=== PATIENT | female | born 1940 | race Caucasian/White ===

== ENCOUNTER → 2016-03-06 | Outpatient (CLI) | payer OTHER ==
[~2016-03-06] MED LIST: GLC/500 PO; ONDA4TAB7 SL
--- NOTE | 2016-03-07 06:39 | PAP/PSG TECHNICIAN REPORT ---
[facility] High Pressure Kettle Operator Polysomnogram Report Study name: None Report date: 03/07/2016 Study date: 03/06/2016 Referring Physician: Mirian MILLER M.D. Name: ELIJAH HINES Interpreting Physician: Rafael Miller M.D. Date of : 1940 High Pressure Kettle Operator: Lynne Ortega RPSGT. Sex: Female Age: 75 Study Type: PSG Weight: 201 lbs 16 in Height: 75 years, Height 5' 5" Neck Circum: BMI: 33.44 Medications: METFORMIN 1000 MG, LORAZEPAM 1 MG, RANITIDINE 75 MG, BACTRIM DS 800-160 MG, CELEXA 20 MG, LISINOPRIL 5 MG, ATORVASTATIN 10 MG, DITROPAN 10 MG, D-3 1000 UNIT, ASPIRIN 81 MG, ACETAMINOPHEN 325 MG, LAXATIVE, Patient History 75 yr-old female here for a baseline/split study. She has a history of loud snoring, worsening memory, and daytime sleepiness. Her [place] scale is 6. The test was started on room air. ETCO2 testing is included in this study. Room 3 Parameters Monitored NPSG: E1-M2, E2-M1, Fp1-M2, Fp2-M1, F3-M2, F4-M2, F4-M1, C3-M2, C4-M2, C4-M1, O1-M2, O2-M2, O2-M1, T3-M2, T4-M1, P3-M2, P4-M1, CHIN1, CHIN2, HR, EKG, Legs, PFLOW, SNOR, FLOW, CFLOW, Tidal Volume, THOR, ABDO, SpO2, PLTH, CPRESS, ETCO2 Wave, ETCO2, pH Sleep Architecture Sleep Stages Time at Lights Off 10:21:09 PM STAGES Time (min.) TST (%) Time at Lights On 5:30:39 AM Wake 95.0 -- Total Recording Time (TRT) 429.50 min. N1 75.5 23 Total Sleep Period (TSP) 352.5 min. N2 235.0 70 Total Sleep Time (TST) 334.5min. N3 24.0 7 Awake Time 95.0 min. REM 0.0 0 Wake after Sleep Onset 37.5 min. Sleep Efficiency (SE) 78 % Sleep Onset Latency (KATERINA) 57.5 min. Number of Stage 1 Shifts None Awakenings 18 Stage Changes 123 Number of REM periods N/A REM 0.0 0 REM Latency NONE min. NREM 334.5 100 Body Position Analysis Supine Right Left Side Prone Vertical Total Sleep Time (min.) 247.1 68.4 91.6 159.96 0.0 0.0 Total Sleep Time (%) 52% 20% 27% 48 0% N/A% Total Sleep Time REM (min.) 0.0 0.0 0.0 None 0.0 0.0 Total Sleep Time NREM (min.) 174.5 68.4 91.6 None 0.0 0.0 Intermittent Wake (min.) 72.5 22.5 0.0 None 0.0 0.0 Total Sleep Period (%) 54% None None None None None Arousals Myoclonus (PLM) * Events Count Index Events Count Index Spontaneous 39 7 Events Awake (PLMW) 65 41.1 Respiratory 16 3.0 Events Asleep w/ Arousal (PLMA) 45 8.1 PLM 44 8 Events Asleep w/o Arousal (PLMS) 316 56.7 Snoring 3 1 Total Asleep 361 64.8 Total 102 18 Total 426 60 Respiratory Analysis * CA OA MA CH H RERA Total Count 0 17 2 0 49 1 68 Index 0.0 3.0 0.4 0 8.8 0 12.4 Mean Duration 0.0 15.5 26.4 0.00 16.5 13.1 16.5 Longest Duration 0.0 26.1 33.1 0.00 33.1 13.1 33.1 Respiratory Event Summary Total Supine ~Supine Right Left Prone REM NREM Apneas Count 19 17 2 1 1 N/A N/A 19 Index 3.4 6 1 0.9 0.7 N/A N/A 3 Hypopneas (4% Desat) Count 49 35 14 2 12 N/A N/A 49 Index 8.8 12.0 5 1.8 7.9 N/A N/A 8.8 Apneas & All Hypopneas Count 68 52 16 3 13 N/A N/A 68 Index 12.2 18 6 3 9 N/A N/A 12.2 Respiratory Events (Jail Guard+All Hyp+RERA) Count 68 53 16 3 13 N/A N/A 68 Index 12.4 18 6 2.6 8.5 N/A N/A 12.4 Respiratory Related Arousal Count 16 53 2 0 2 N/A N/A 17 Index 3.0 5 1 0 1 N/A N/A 3 Snoring Analysis Supine Right Left Prone REM NREM Total Snore duration 4.8 min Snores count 182 38 38 N/A N/A 258 258 Snore mean duration 1.1 Sec Snores index 63 33 25 N/A N/A 46.3 46.3 TST with snoring (%) 1.4% SpO2 Analysis Total REM NREM Awake <50% 0.0 min. 0.0 min. 0.0 min. 0.0 min. 51 - 60% 0.0 min. 0.0 min. 0.0 min. 0.0 min. 61 - 70% 0.0 min. 0.0 min. 0.0 min. 0.0 min. 71 - 80% 2.2 min. 0.0 min. 1.7 min. 0.5 min. 81 - 90% 395.1 min. 0.0 min. 312.3 min. 82.8 min. 91 - 100% 26.9 min. 0.0 min. 20.5 min. 6.5 min. Average 88 0 88 89 Minimum SpO2 75 N/A 75 77 Desaturation Event Index 15.9 0.0 18.7 8.2 # Desat. Events below 89% 112 N/A 102 10 Time(%) with Saturation below 89% 45.9 0.0 41.0 4.9 Time(min.) with Saturation below 89% 194.8 0.0 174.1 20.7 Heart Rate Analysis End Tidal CO2 Analysis Min (bpm) Max (bpm) Average (bpm) TSP (mins) % of TSP Awake 58 127 75 Above 55 mmHg 32.8 9.8 NREM 56 86 71 50-55 mmHg 81.0 24.2 REM N/A N/A N/A 45-50 mmHg 76.1 22.7 Overall 56 86 71 40-45 mmHg 37.2 11.1 35-40 mmHg 19.8 5.9 30-35 mmHg 13.9 4.2 Average ETCO2 0.2 Supplemental O2 Values Minimum O2 level: None Value Start Time End Time High Pressure Kettle Operator Comments Ms. Hines slept in the right, left, and supine positions. No cardiac arrhythmias were noted. PLMs were throughout the study noted. No bruxism noted. Snoring was noted and scored as a 2-3 on a scale of 1 through 5. (0=no snoring, 5=snoring loud enough to be heard through a closed door or down the limon way). She did not meet specific Split-Night criteria during the diagnostic portion of this study. She did not wake up to use the restroom during the night. Ms. Hines stated that she slept about the same as usual. The final report will be interpreted and signed by a sleep physician. The completed physician report will then be placed in the patient medical record. Therapy (cm H2O) 0 TIB (min.) 429.5 TST (min.) 334.5 Sleep Onset (min.) 57.5 REM Onset From Sleep (min.) NONE Sleep Efficiency % 78 Wakefulness (%) 22 Wakefulness (min.) 95.0 NREM 1 (%) 23 NREM 1 (min.) 75.5 NREM 2 (%) 70 NREM 2 (min.) 235.0 NREM 3 (%) 7 NREM 3 (min.) 24.0 REM (%) 0 REM (min.) 0.0 # Arousals 102 Arousal Index 18 # Snore 258 Snore Index 46.3 AHI 12.2 AHI Supine 18 AHI Non-Supine 6 NREM AHI 12.2 REM AHI N/A RDI 12.4 # Obstructive Apnea 17 # Central Apnea 0 # Mixed Apnea 2 # Hypopneas 49 RERAs 1 Total Respiratory Events 70 Time Below SpO2 89% (min.) 174.1 Mean NREM SpO2 (%) 88 Mean REM SpO2 (%) N/A Mean Sleep SpO2 (%) 88 Min NREM SpO2 (%) 75 Min REM SpO2 (%) N/A Position Supine (min.) 247.1 Position Non-supine (min.) 160.0 LM Index Sleep 64.8 LM Index NREM 64.8 LM Index REM N/A Mean Heart Rate (bpm) 71 Min Heart Rate (bpm) 56
--- NOTE | 2016-03-13 11:13 | POLYSOMNOGRAPH REPORT ---
REFERRING PERSON: Dr. Zuleyma Miller. AUTO SELF SERVICE STATION ATTENDANT: Lynne Ortega. Ms. Hines is a 75-year-old female sent for baseline split-night sleep study. She has a history of loud snoring, poor memory, and daytime sleepiness. Her [place] Sleepiness Scale score on the evening of this study is 6. BMI is 33.44. Following the technical and digital specifications of the [employer] [employer] (AASM) a standard diagnostic polysomnogram was performed monitoring EEG, EOG, EMG (chin and leg deviations), oxygen saturation, body position, digital video, respiratory effort and airflow. The sleep Stage and event scoring was based on the AASM Manual for the Scoring of Sleep and Associated Events 2007 edition. Apneas are defined as a drop in the peak thermal sensor excursion by >90% of baseline for at least 10 seconds. Hypopneas were scored using the 4% oxygen desaturation rule (4A-Medicare) and a decrease in the nasal pressure excursions by >30% of baseline for at least 10 seconds. Respiratory effort-related arousal (RERA's) is defined as a sequence of breaths lasting at least 10 seconds characterized by increasing respiratory effort or flattening of the nasal pressure waveform leading to an arousal from sleep when the sequence of breaths does not meet criteria for an apnea or hypopnea. Apnea Hypopnea index (AHI) is defined as the number of apneas and hypopneas occurring in an hour of sleep. Respiratory disturbance index (RDI) is defined as the number of apneas, hypopneas, and RERA's occurring in an hour of sleep. Ms. Hines's total sleep period time was 352.5 minutes. Total sleep time was 333.5 minutes. Sleep efficiency was 78%. Latency to sleep onset was 57.5 minutes with wake after sleep onset of 37.5 minutes. Total non-REM sleep time was 334.5 minutes. She spent 23% of that time in N1 sleep, 70% in N2 sleep, and 7% in N3 sleep. REM latency, there was no REM sleep on this test. There were 102 cortical arousals from sleep. 44 of these arousals were due to periodic limb movements, 3 were due to snoring, 16 were due to respiratory events and the remaining 39 were spontaneous. There were 361 periodic limb movements. Limb movement index was 64.8, limb movement with arousal index was 8.1. There were no central, 17 obstructive, and 2 mixed apneas on this test. Additionally, there were 49 hypopnea and 1 RERA. Apnea-hypopnea index was elevated at 12.2. There were 258 snoring events recorded. Total sleep time with snoring was 1.4%. Mean saturation was low at 88% with desaturations to 75%. Saturations were less than 89% for 194.8 minutes of sleep time. There was no cardiac ectopy. Heart rates during sleep ranged from a low of 56 beats per minute to a high of 86 beats per minute. End-tidal CO2 was recorded on this test. End-tidal CO2s were above 55 mmHg for 32.8 minutes or 9.8% of total sleep period time. End-tidal CO2s were between 50 and 55 mmHg for 24.2%, between 45 and 50 mmHg for 22.7% of total sleep period time, between 40 and 45 mmHg for 11.1% of total sleep period time, between 35 and 40 mmHg for 5.9%, and between 30 and 35 mmHg for 4.2% of total sleep period time. IMPRESSION AND PLAN: A 75-year-old female with evidence of mild sleep apnea and significant nocturnal hypoxemia on this study. 1. This patient would likely benefit from positive airway pressure therapy. She should return to sleep lab for full-night titration, and then based on those results, be started on equipment at home. A download from her machine can be reviewed in 1 month both to check compliance as well as AHI, and further pressure adjustments should occur at that time. 2. Should this patient be unwilling or unable to tolerate CPAP therapy, she should be started on nocturnal oxygen and then referred to either ear, nose and throat or oral surgery/dental medicine (if appropriate) to discuss alternative treatments for sleep disordered breathing.
== END | disposition home or self-care (01) ==
LOC: C.NEUR 21:00
PROVIDERS: ATTEND Family Medicine
DX: F51.11 Primary hypersomnia (principal); R06.83 Snoring; E66.9 Obesity, unspecified; R41.3 Other amnesia; R09.02 Hypoxemia

== ENCOUNTER → 2016-05-04 | Outpatient (CLI) | payer OTHER ==
[~2016-05-04] MED LIST changes: +ATOR10TA82 PO; +ATV/1 PO; +CLX20 PO; +LISI-729 PO; +METF-384 PO
--- NOTE | 2016-05-05 06:14 | PAP/PSG TECHNICIAN REPORT ---
[facility] Cardiopulmonary Technologist Polysomnogram Report Study name: None Report date: 05/05/2016 Study date: 05/04/2016 Referring Physician: Mirian MILLER M.D. Name: ELIJAH HINES Interpreting Physician: Rafael Miller M.D. Date of : 1940 Cardiopulmonary Technologist: Lynne Ortega RPS. Sex: Female Age: 76 Study Type: PSG PAP Weight: 201 lbs 16 in Height: 76 years, Height 5' 5" Neck Circum: BMI: 33.44 Medications: METFORMIN 1000 MG, LORAZEPAM 1 MG, RANITIDINE 75 MG, BACTRIM DS 800-160 MG, CELEXA 20 MG, LISINOPRIL 5 MG, ATORVASTATIN 10 MG, DITROPAN 10 MG, D-3 1000 UNIT, ASPIRIN 81 MG, ACETAMINOPHEN 325 MG, LAXATIVE, Patient History 76 yr-old female here for a new CPAP treatment study. She was found to be positive for AVINASH with an AHI of 12.2. Her diagnostic study was on 03/06/16. She is wearing a Quattro Air full face mask size medium from [employer]. The test was started on room air and 4 CMH2O. ETCO2 testing was not utilized during this study. Room 1 Parameters Monitored NPSG: E1-M2, E2-M1, Fp1-M2, Fp2-M1, F3-M2, F4-M2, F4-M1, C3-M2, C4-M2, C4-M1, O1-M2, O2-M2, O2-M1, T3-M2, T4-M1, P3-M2, P4-M1, CHIN1, CHIN2, HR, EKG, Legs, PFLOW, SNOR, FLOW, CFLOW, Tidal Volume, THOR, ABDO, SpO2, PLTH, CPRESS, ETCO2 Wave, ETCO2, pH Sleep Architecture Sleep Stages Time at Lights Off 9:31:41 PM STAGES Time (min.) TST (%) Time at Lights On 5:14:11 AM Wake 72.5 -- Total Recording Time (TRT) 462.50 min. N1 56.0 14 Total Sleep Period (TSP) 412.0 min. N2 228.5 59 Total Sleep Time (TST) 390.0min. N3 27.5 7 Awake Time 72.5 min. REM 78.0 20 Wake after Sleep Onset 30.0 min. Sleep Efficiency (SE) 84 % Sleep Onset Latency (KATERINA) 42.5 min. Number of Stage 1 Shifts None Awakenings 12 Stage Changes 81 Number of REM periods 6 REM 78.0 20 REM Latency 156.5 min. NREM 312.0 80 Body Position Analysis Supine Right Left Side Prone Vertical Total Sleep Time (min.) 268.7 63.9 116.0 179.87 0.0 0.0 Total Sleep Time (%) 54% 16% 30% 46 0% N/A% Total Sleep Time REM (min.) 9.0 28.5 40.5 None 0.0 0.0 Total Sleep Time NREM (min.) 201.1 35.4 75.5 None 0.0 0.0 Intermittent Wake (min.) 58.6 13.3 0.6 None 0.0 0.0 Total Sleep Period (%) 55% None None None None None Arousals Myoclonus (PLM) * Events Count Index Events Count Index Spontaneous 27 4 Events Awake (PLMW) 63 52.1 Respiratory 19 2.9 Events Asleep w/ Arousal (PLMA) 20 3.1 PLM 20 3 Events Asleep w/o Arousal (PLMS) 381 58.6 Snoring 4 1 Total Asleep 401 61.7 Total 70 11 Total 464 60 Respiratory Analysis * CA OA MA CH H RERA Total Count 1 7 2 0 102 3 112 Index 0.2 1.1 0.3 0 15.7 0 17.7 Mean Duration 10.0 17.2 24.8 0.00 20.1 16.4 19.8 Longest Duration 10.0 24.6 25.5 0.00 25.5 17.7 59.4 Respiratory Event Summary Total Supine ~Supine Right Left Prone REM NREM Apneas Count 10 9 1 1 0 N/A 3 7 Index 1.5 3 0 0.9 0.0 N/A 2 1 Hypopneas (4% Desat) Count 102 91 11 8 3 N/A 16 86 Index 15.7 26.0 4 7.5 1.6 N/A 12.3 16.5 Apneas & All Hypopneas Count 112 100 12 9 3 N/A 19 93 Index 17.2 29 4 8 2 N/A 14.6 17.9 Respiratory Events (Order Worker+All Hyp+RERA) Count 112 103 12 9 3 N/A 19 93 Index 17.7 29 4 8.4 1.6 N/A 14.6 18.5 Respiratory Related Arousal Count 19 103 0 0 0 N/A 1 18 Index 2.9 5 0 0 0 N/A 1 3 Snoring Analysis Supine Right Left Prone REM NREM Total Snore duration 20.6 min Snores count 1,109 3 5 N/A 11 1,106 1,117 Snore mean duration 1.1 Sec Snores index 317 3 3 N/A 8.5 212.7 171.8 TST with snoring (%) 5.3% Desaturation Event Summary: Minimum %SpO2 Event Count Mean/Min/Max Duration(sec.) Desaturation Index % Time In Bed > 90 117 31.1 / 7.3 / 60.0 26.0 59.0 86 - 90 36 26.7 / 6.5 / 50.0 12.4 38.0 81 - 85 0 N/A 0.0 2.5 76 - 80 0 N/A 0.0 0.4 71 - 75 0 N/A 0.0 0.0 66 - 70 0 N/A 0.0 0.0 61 - 65 0 N/A 0.0 0.0 56 - 60 0 N/A 0.0 0.0 51 - 55 0 N/A 0.0 0.0 < 50 0 N/A 0.0 0.0 Total REM NREM Awake <50% 0.0 min. 0.0 min. 0.0 min. 0.0 min. 51 - 60% 0.0 min. 0.0 min. 0.0 min. 0.0 min. 61 - 70% 0.0 min. 0.0 min. 0.0 min. 0.0 min. 71 - 80% 2.1 min. 0.6 min. 1.3 min. 0.2 min. 81 - 90% 185.1 min. 23.4 min. 137.5 min. 24.2 min. 91 - 100% 270.0 min. 54.1 min. 173.1 min. 42.8 min. Average 91 91 91 91 Minimum SpO2 74 78 74 79 Desaturation Event Index 17.4 16.2 20.6 5.0 # Desat. Events below 89% 106 15 91 0 Time(%) with Saturation below 89% 11.4 2.6 8.4 0.4 Time(min.) with Saturation below 89% 52.1 11.9 38.3 1.8 Time (mins) REM (mins) NREM (mins) % of TST SpO2 Below 90% 124 21 N103 24.4 SpO2 Below 88% 53 0 0 7 Heart Rate Analysis Min (bpm) Max (bpm) Average (bpm) Awake 53 89 62 NREM 52 95 64 REM 55 82 66 Overall 52 95 65 Supplemental O2 Values Minimum O2 level: None Value Start Time End Time Cardiopulmonary Technologist Comments Ms. Hines slept in the left, right, and supine positions. Cardiac arrhythmias were noted (please refer to the printouts). PLMs were noted. No bruxism noted. CPAP was initiated at +4 CMH2O and up-titrated to a level of +13 CMH2O, Cflex 3. Due to continued respiratory events and approaching a high pressure, she was then switched to BiPAP at +15/11 CMH2O. Apneas and hypopneas continued to occur while she was supine. Further increases in pressure were not made due to her waking up and using the restroom at the end of the night. A Quattro Air full face mask size medium from [employer] was used during titration She did not wake up to use the restroom during the night. Ms. Hines stated that she slept poorly. The final report will be interpreted and signed by a sleep physician. The completed physician report will then be placed in the patient medical record. Therapy Event: Therapy (cm H20) 4 6 7 8 10 11 12 13 15/11 Total Time at Pressure (min.) 101.4 51.3 61.6 28.7 15.9 14.5 102.7 20.7 65.7 TST at Pressure (min.) 43.4 51.3 61.1 27.7 15.9 14.5 102.2 18.2 55.7 # Periods 1 1 1 1 1 1 1 1 1 Sleep Onset (min.) 42.5 0.0 0.0 0.0 0.0 0.0 0.0 0.0 0.0 REM Onset (min.) N/A N/A 46.3 0.0 N/A N/A 102.1 0.0 0.0 Sleep Efficiency % 42 100 99 96 100 100 99 87 84 Wakefulness (%) 57.2 0.0 0.8 3.5 0.0 0.0 0.5 12.1 15.2 Wakefulness (min.) 58.0 0.0 0.5 1.0 0.0 0.0 0.5 2.5 10.0 NREM 1 (%) 10.4 0.0 17.0 31.4 6.3 0.0 7.3 36.2 15.2 NREM 1 (min.) 10.5 0.0 10.5 9.0 1.0 0.0 7.5 7.5 10.0 NREM 2 (%) 32.5 46.4 63.0 7.0 93.7 100.0 91.6 19.3 5.3 NREM 2 (min.) 32.9 23.8 38.8 2.0 14.9 14.5 94.1 4.0 3.5 NREM 3 (%) 0.0 53.6 0.0 0.0 0.0 0.0 0.0 0.0 0.0 NREM 3 (min.) 0.0 27.5 0.0 0.0 0.0 0.0 0.0 0.0 0.0 REM (%) 0.0 0.0 19.2 58.1 0.0 0.0 0.6 32.4 64.2 REM (min.) 0.0 0.0 11.8 16.7 0.0 0.0 0.6 6.7 42.2 # Arousals 17 1 13 8 2 1 12 6 10 Arousal Index 23.5 1.2 12.8 17.3 7.6 4.1 7.0 19.8 10.8 # Snore 78 302 418 20 64 72 130 16 17 Snore Index 107.8 353.4 410.2 43.4 241.9 297.9 76.3 52.7 18.3 AHI 15.2 11.7 10.8 30.3 75.6 45.5 5.3 49.4 11.8 AHI Supine 22.0 11.7 11.6 65.9 75.6 45.5 17.3 49.4 44.7 AHI Non-Supine 3.7 N/A 10.0 10.2 N/A N/A 0.0 N/A 4.0 NREM AHI 15.2 11.7 7.3 59.9 75.6 45.5 5.3 47.0 26.7 REM AHI N/A N/A 25.4 10.8 N/A N/A 0.0 53.6 7.1 RDI 18.0 11.7 11.8 30.3 75.6 45.5 5.3 49.4 11.8 # Obstructive 0 0 0 2 0 0 0 2 3 # Central Ap 0 0 1 0 0 0 0 0 0 # Mixed 0 0 0 0 0 0 0 0 2 # Hypopneas 11 10 10 12 20 11 9 13 6 RERAS 2 0 1 0 0 0 0 0 0 Total Respiratory Events 13 10 12 14 20 11 9 15 11 Time Below SpO2 89.00% (min.) 3.8 7.2 11.7 4.9 4.0 3.2 7.4 5.6 2.4 Mean NREM SpO2 (%) 91 90 90 90 91 91 91 90 91 Mean REM SpO2 (%) N/A N/A 89 90 N/A N/A 85 89 93 Mean Sleep SpO2 (%) 91 90 90 90 91 91 91 89 92 Min NREM SpO2 (%) 81 79 86 74 81 81 78 80 77 Min REM SpO2 (%) N/A N/A 82 88 N/A N/A 82 78 86 Position Supine (min.) 27.3 51.3 31.0 10.0 15.9 14.5 31.2 18.2 10.7 Position Non-supine (min.) 16.1 0.0 30.1 17.7 0.0 0.0 71.0 0.0 45.0 LM Index Sleep 107.8 100.6 96.2 58.5 68.0 53.8 28.8 13.2 30.2 LM Index NREM 107.8 100.6 101.0 38.1 68.0 53.8 28.9 0.0 4.4 LM Index REM N/A N/A 76.1 72.0 N/A N/A 0.0 35.8 38.4 Mean Heart Rate (bpm) 63 63 68 69 66 65 65 65 61 Min Heart Rate (bpm) 52 52 53 53 54 54 55 54 52
--- NOTE | 2016-05-11 07:42 | POLYSOMNOGRAPH REPORT ---
TEST DATE: 05/04/2016. REFERRING PERSON: Dr. Rafael Miller. SEWING MACHINE ATTACHMENT TESTER: Lynne Ortega. Ms. Hines is a 76-year-old female sent for CPAP titration study. She was recently found to have an AHI of 12.2. He is using a medium Quattro Air full facemask for her titration. Her [place] Sleepiness Scale Score on the evening of this study is not recorded. BMI is 33.44. Following the technical and digital specifications of the [place] [employer] (AASM) a standard diagnostic polysomnogram was performed monitoring EEG, EOG, EMG (chin and leg deviations), oxygen saturation, body position, digital video, respiratory effort and airflow. The sleep Stage and event scoring was based on the AASM Manual for the Scoring of Sleep and Associated Events 2007 edition. Apneas are defined as a drop in the peak thermal sensor excursion by >90% of baseline for at least 10 seconds. Hypopneas were scored using the 4% oxygen desaturation rule (4A-Medicare) and a decrease in the nasal pressure excursions by >30% of baseline for at least 10 seconds. Respiratory effort-related arousal (RERA's) is defined as a sequence of breaths lasting at least 10 seconds characterized by increasing respiratory effort or flattening of the nasal pressure waveform leading to an arousal from sleep when the sequence of breaths does not meet criteria for an apnea or hypopnea. Apnea Hypopnea index (AHI) is defined as the number of apneas and hypopneas occurring in an hour of sleep. Respiratory disturbance index (RDI) is defined as the number of apneas, hypopneas, and RERA's occurring in an hour of sleep. Ms. Hines's total sleep period time was 412 minutes. Total sleep time was 390 minutes. Sleep efficiency was 84%. Latency to sleep onset was 42.5 minutes with wake after sleep onset of 30 minutes. Total non-REM sleep time was 312 minutes. She spent 14% of that time in N1 sleep, 59% in N2 sleep and 7% in N3 sleep. REM latency was 156.5 minutes. Total REM sleep time 78 minutes or 20% of total sleep time. There were 70 cortical arousals from sleep. Four of these arousals were due to snoring, 20 due to periodic limb movements of sleep, 19 were due to respiratory events, and 27 were spontaneous. There were 401 periodic limb movements. Limb movement index was 61.7, however, limb movement with arousal index was 3.1. On this sleep study, there was 1 central, 7 obstructive and 2 mixed apneas. Additionally, there were 102 hypopnea. Apnea-hypopnea index was 17.2. 1,117 snoring events were recorded. Total sleep time with snoring was 5.3%. Mean saturation during sleep was 91% with desaturations to 74%. Saturations were less than 89 for 52.1 minutes of recorded time. Premature atrial and ventricular complexes were noted on EKG monitoring. Heart rates ranged from a low of 52 beats per minute to a high of 95 beats per minute during sleep. Ms. Hines was titrated from a CPAP pressure of 4 to a CPAP pressure of 13 over the course of the night. Increasing pressures were needed to prevent apneas, hypopneas and arousals. At a pressure of 13, due to continued respiratory events, and difficulty tolerating therapy, she was switched to bilevel therapy. She was observed on 15/11 for 55.7 minutes of sleep time, 42.2 of those minutes was spent in REM sleep. This was non-supine REM sleep. AHI and RDI on this pressure were both 11.8. Saturations were less than 89% for 2.4 minutes of recorded time. IMPRESSION AND PLAN: Suboptimal CPAP to BIPAP titration study in this patient with known mild sleep apnea. Most of her events were hypopneas and required increasing pressures to eliminate. On a pressure of 15/11. She continued to have some hypopneic events with an AHI of 11 after a long period of non-supine REM sleep. I would recommend that this patient could be started on an auto titrating BIPAP with an EPAP minimum of 11 and a max pressure of 15 with a maximum pressure support of 4. A download from her machine can then be reviewed in 1 month both to check compliance as well as AHI and further pressure adjustments can occur at that time. This appears to eliminate her hypoxemia.
== END | disposition home or self-care (01) ==
LOC: C.NEUR 20:00
PROVIDERS: ATTEND Family Medicine
DX: G47.33 Obstructive sleep apnea (adult) (pediatric) (principal); G47.34 Idiopathic sleep related nonobstructive alveolar hypoventilation; I10 Essential (primary) hypertension; G47.10 Hypersomnia, unspecified

== ENCOUNTER 2016-12-20 18:11 | Emergency (ER) | payer OTHER ==
[~2016-12-20] VITALS: Ht 162.6 cm; Wt 93.0 kg
[~2016-12-20 18:11] MED LIST changes: -ATOR10TA82 PO; -ATV/1 PO; -CLX20 PO; -LISI-729 PO; -METF-384 PO
[2016-12-20 18:15] VITALS: TEMP 36.4; Ht 162.6 cm; Wt 93.0 kg
[2016-12-20 18:32] VITALS: O2SAT 98
[2016-12-20] MEDS ORDERED: METF-384 PO (18:41)
[2016-12-20] MEDS ORDERED: ATV/1 PO (18:49)
[2016-12-20] MEDS ORDERED: LISI-729 PO (18:49)
[2016-12-20] MEDS ORDERED: ATOR10TA82 PO (18:49)
[2016-12-20] MEDS ORDERED: CLX20 PO (18:52)
[2016-12-20] MEDS ORDERED: ONDANSETRON INJ 2 MG/ML 2 ML VIAL IV STA (18:54)
[2016-12-20] MEDS ORDERED: FENTANYL CITRATE INJ 50 MCG/1 ML 2 ML VIAL IV ONE (19:00)
[2016-12-20 19:13] LABS: ISTAT CREATININE 0.8 mg/dl (0.6-1.3); ISTAT HEMOGLOBIN 11.2 g/dl (12.0-16.0); ISTAT IONIZED CALCIUM 1.21 mmol/l (1.12-1.32)
[2016-12-20 19:15] LABS: BASO % 0.3 %; BASO ABS # 0.04 K/uL (0-0.2); COMPLETE YES; EOS % 1.7 %; HEMATOCRIT 33.6 % (37-47); IG% 0.3 %; LYMPH ABS # 1.73 K/uL (1.2-3.4); MEAN CELL VOLUME 90.3 fL (80-100); MEAN CORPUSCULAR HEMOGLOBIN 29.6 pg (25-34); MEAN CORPUSCULAR HGB CONC 32.7 g/dl (32-36); MEAN PLATELET VOLUME 11.7 fL (7.4-10.4); MONO % 5.3 %; NEUT % 80.4 %; PLATELET COUNT 188 K/uL (130-400); RED BLOOD COUNT 3.72 M/uL (4.2-5.4); WHITE BLOOD COUNT 14.38 K/uL (4.8-10.8)
--- NOTE | 2016-12-20 19:18 | EMERGENCY ROOM VISIT NOTE ---
History First contact with patient: 18:33 Chief Complaint: FALL Stated Complaint: FELL OFF HORSE, RT EYE NOT RESPONDING, RIB PAIN History of Present Illness The patient is a 76 year old female who presents to the Emergency Room with complaints of headache and right rib pain. The patient states that she fell off of a horse this evening. She states that the horse turned and she fell to the opposite side. She reports a mild headache. She does not remember the fall. The fall was witnessed and she did not loose consciousness. She reports pain in the right ribs and difficulty taking a full breath. A family member who is a nurse examined her and told her that the right eye is not reactive to light. The patient denies any abdominal pain or vomiting. She rates her overall discomfort a 5/10. She also reports pain in the right buttock. She denies any numbness or weakness. She takes a baby aspirin daily but no other anticoagulants. Review of Systems A complete 10 point review of systems was reviewed with the patient with pertinent positives and negatives as per history of present illness. All else were negative. Past Medical/Surgical History Medical Problems: (1) CATARACT NOS (2) DIAB MILTON WO COMPL, TYPE II OR UNSPEC TYPE, NOT UNCNTRLD (3) HYPERLIPIDEMIA NEC/NOS (4) HYPERTENSION NOS (5) PNEUMONIA, ORGANISM NOS Social History Smoking Status: Former Smoker Alcohol Use: none Marital Status: Occupation Status: retired Current/Historical Medications Scheduled Atorvastatin (Lipitor), 10 MG PO DAILY Citalopram (Citalopram Hydrobromide), 20 MG PO QPM Lisinopril (Zestril), 5 MG PO DAILY Lorazepam (Ativan), 1 MG PO HS Metformin Hcl (Glucophage), 1,000 MG PO BID Physical Exam Vital Signs Date Time Temp Pulse Resp B/P (MAP) Pulse Ox O2 Delivery O2 Flow Rate FiO2 12/20/16 21:05 88 20 122/63 97 12/20/16 20:30 78 20 122/63 97 Room Air 12/20/16 19:30 78 20 128/68 98 Room Air 12/20/16 18:34 97 20 114/59 95 Room Air 12/20/16 18:32 98 Room Air 12/20/16 18:15 36.4 104 16 131/79 96 Room Air Physical Exam VITALS: Vitals are noted on the nurse's note and reviewed by myself. Vital signs stable. GENERAL: This is a 76-year-old female, in no acute distress but appears to be in pain, nondiaphoretic, well-developed well-nourished. SKIN: The skin was without erythema, edema, or bruising. HEAD: Normocephalic atraumatic. EARS: External auditory canals clear, tympanic membranes pearly carrera without erythema or effusion bilaterally. No hemotympanum. EYES: Pupils equal round and reactive to light and accommodation. No subconjunctival hemorrhages. Extraocular movements intact. NOSE: No deformity, no bleeding. MOUTH: Mucous membranes moist. NECK: Supple without nuchal rigidity. Cervical spine is nontender. HEART: Regular rate and rhythm without murmurs gallops or rubs. LUNGS: Clear to auscultation bilaterally without wheezes, rales or rhonchi. No retractions or accessory muscle use. ABDOMEN: Soft, nontender to palpation. MUSCULOSKELETAL: There is tenderness to palpation to the right lower lateral ribs. There is tenderness to palpation of the right buttock. Full range of motion of all extremities. NEURO: Patient was alert and oriented to person place and time. Normal sensation to light and sharp touch. No focal neurological deficits. Medical Decision & Procedures ER Provider Diagnostic Interpretation: HEAD WITHOUT CONTRAST (CT) IMPRESSION: 1. No acute intracranial abnormality. CERVICAL SPINE W/O IMPRESSION: No acute osseous injury of the cervical spine. Multilevel degenerative changes. CHEST CT WITH CONTRAST IMPRESSION: 1. No acute intrathoracic abnormality identified. No fracture or pneumothorax. 2. 4 mm noncalcified pulmonary nodule of the right upper lobe is noted along with evidence of prior granulomatous disease. 3. Parenchymal calcifications are seen within the bilateral breasts. There is a round masslike lesion of the mid right breast measuring up to 1.2 cm as above. Correlate with mammography. ABD/PELVIS IV CONTRAST ONLY IMPRESSION: 1. Soft tissue contusion in the superficial subcutaneous tissue of the right flank with focal hematoma immediately superficial to the right gluteus muscle complex. 2. No evidence of intra-abdominal injury. 3. Indeterminate left adrenal nodule. Laboratory Results 12/20/16 18:55 Red Blood Count 3.72, Mean Corpuscular Volume 90.3, Mean Corpuscular Hemoglobin 29.6, Mean Corpuscular Hemoglobin Concent 32.7, Mean Platelet Volume 11.7, Neutrophils (%) (Auto) 80.4, Lymphocytes (%) (Auto) 12.0, Monocytes (%) (Auto) 5.3, Eosinophils (%) (Auto) 1.7, Basophils (%) (Auto) 0.3, Neutrophils # (Auto) 11.56, Lymphocytes # (Auto) 1.73, Monocytes # (Auto) 0.76, Eosinophils # (Auto) 0.24, Basophils # (Auto) 0.04 12/20/16 18:55 Test 12/20/16 18:55 12/20/16 19:00 White Blood Count 14.38 K/uL (4.8-10.8) Red Blood Count 3.72 M/uL (4.2-5.4) Hemoglobin 11.0 g/dL (12.0-16.0) Hematocrit 33.6 % (37-47) Mean Corpuscular Volume 90.3 fL (80-100) Mean Corpuscular Hemoglobin 29.6 pg (25-34) Mean Corpuscular Hemoglobin Concent 32.7 g/dl (32-36) Platelet Count 188 K/uL (130-400) Mean Platelet Volume 11.7 fL (7.4-10.4) Neutrophils (%) (Auto) 80.4 % Lymphocytes (%) (Auto) 12.0 % Monocytes (%) (Auto) 5.3 % Eosinophils (%) (Auto) 1.7 % Basophils (%) (Auto) 0.3 % Neutrophils # (Auto) 11.56 K/uL (1.4-6.5) Lymphocytes # (Auto) 1.73 K/uL (1.2-3.4) Monocytes # (Auto) 0.76 K/uL (0.11-0.59) Eosinophils # (Auto) 0.24 K/uL (0-0.5) Basophils # (Auto) 0.04 K/uL (0-0.2) RDW Standard Deviation 47.3 fL (36.4-46.3) RDW Coefficient of Variation 14.3 % (11.5-14.5) Immature Granulocyte % (Auto) 0.3 % Immature Granulocyte # (Auto) 0.05 K/uL (0.00-0.02) Prothrombin Time 10.8 SECONDS (9.0-12.0) Prothromb Time International Ratio 1.0 (0.9-1.1) Activated Partial Thromboplast Time 23.4 SECONDS (21.0-31.0) Partial Thromboplastin Ratio 0.9 Est Creatinine Clear Calc Drug Dose 54.0 ml/min Estimated GFR () 64.9 Estimated GFR (Non- 56.0 BUN/Creatinine Ratio 18.6 (10-20) Calcium Level 8.8 mg/dl (8.5-10.1) Troponin I < 0.015 ng/ml (0-0.045) Bedside Hemoglobin 11.2 g/dl (12.0-16.0) Bedside Hematocrit 33 % (37-47) Bedside Sodium 138 mEq/L (135-144) Bedside Potassium 3.4 mEq/L (3.3-5.0) Bedside Chloride 98 mEq/L (101-112) Bedside Total CO2 24 mEq/l (24-31) Anion Gap 20.0 mmol/L (16-25) Bedside Blood Urea Nitrogen 17 mg/dl (7-18) Bedside Creatinine 0.8 mg/dl (0.6-1.3) Bedside Glucose (other) 250 mg/dl (70-99) Bedside Ionized Calcium (Mana) 1.21 mmol/l (1.12-1.32) Medications Administered Medications (Trade) Dose Ordered Sig/Kellie Route Start Time Stop Time Status Last Admin Dose Admin Fentanyl Citrate (Fentanyl Inj) 50 mcg NOW ONCE IV 12/20/16 19:00 12/20/16 19:01 DC 12/20/16 19:05 50 MCG Ondansetron HCl (Zofran Inj) 4 mg NOW STAT IV 12/20/16 18:54 12/20/16 18:55 DC 12/20/16 19:04 4 MG Medical Decision Differential diagnosis includes intracranial hemorrhage, concussion, fracture, contusion, intra-abdominal injury, pneumothorax, hemothorax, rib fracture, among others. The patient was evaluated as above. She was given 50 g fentanyl for pain as well as 4 mg Zofran for nausea. Multiple imaging studies were performed and read by radiology as above. Head CT was unremarkable. There was no injury of the cervical spine. Chest CT and abdominal CT showed no acute intrathoracic or intra-abdominal pathology. Patient does have some contusions of the right flank as well as a hematoma of the right buttock. Incidental finding of a breast masses noted. Patient was informed of this and instructed to follow-up with her PCP. She has pain medication at home which she will take as needed. The patient was given an incentive spirometer as well as a walker. She was instructed to return here for any worsening or new/concerning symptoms. She verbalized understanding of my assessment and treatment plan and was discharged home in good condition. The patient was independently evaluated by Dr. Gallagher, ED attending physician, who agreed with my assessment and treatment plan. Medication Reconcilliation Current Medication List: was personally reviewed by me Blood Pressure Screening Patient's blood pressure: Normal blood pressure Impression Primary Impression: Fall from horse Additional Impression: Contusion of multiple sites Departure Information Dispostion Home / Self-Care Condition GOOD Referrals Mono Hou D.OVinod (PCP) Patient Instructions My [facility] Additional Instructions For pain control, you can use the following [id number] medicines (if >12 yo): - Regular strength (325mg/tab) Tylenol (acetaminophen) 2 tabs every 4-6 hours as needed. Do not exceed 12 tablets in a 24 hour period. Avoid taking more than 4 grams (4000 mg) of Tylenol per day. This includes any other sources of acetaminophen you may take on a regular basis. - Regular strength (200 mg/tab) Advil (ibuprofen) 1-2 tabs every 4-6 hours as needed. Do not exceed a dose of 3200 mg per day. Take your own pain medication at home as needed. Apply ice to areas of pain as needed for pain and swelling. Follow-up with your primary care provider for a recheck. Return to the emergency department with any worsening or new/concerning symptoms. Problem Qualifiers Primary Impression: Fall from horse Encounter type: initial encounter Qualified Codes: V80.010A - Animal-rider injured by fall from or being thrown from horse in noncollision accident, initial encounter
[2016-12-20 19:27] LABS: PARTIAL THROMBOPLASTIN RATIO 0.9; PROTHROMBIN TIME (PATIENT) 10.8 SECONDS (9.0-12.0)
--- NOTE | 2016-12-20 19:33 | DIAGNOSTIC IMAGING REPORT ---
HEAD WITHOUT CONTRAST (CT) CLINICAL HISTORY: 76 years-old Female presenting with fell off horse, head and right rib pain. TECHNIQUE: Multidetector CT imaging of the head was performed without the use of intravenous contrast. IV contrast: None. A dose lowering technique was used consistent with the principles of ALARA (as low as reasonably achievable). COMPARISON: 03/29/2012. CT DOSE (mGy.cm): The estimated cumulative dose is 3171.91 inclusive of multiple additional CTs. FINDINGS: Security Operations Analyst topogram: Unremarkable. Ventricles and sulci normal in size. Brain parenchyma normal in appearance with preserved carrera-white differentiation. No mass effect or midline shift. No hemorrhage or acute territorial infarct. No extra-axial fluid collection. Paranasal sinuses and mastoid air cells clear. Calvarium intact. IMPRESSION: 1. No acute intracranial abnormality. Electronically signed by: Valentino Saleh M.D. 12/20/2016 7:32 PM Dictated Date/Time: 12/20/2016 7:30 PM
[2016-12-20 19:34] LABS: BLOOD UREA NITROGEN 18 mg/dl (7-18); BUN/CREATININE RATIO 18.6 (10-20); CALCIUM 8.8 mg/dl (8.5-10.1); CARBON DIOXIDE 24 mmol/L (21-32); CHLORIDE 102 mmol/L (98-107); CREATININE 0.98 mg/dl (0.60-1.20); GLUCOSE 247 mg/dl (70-99); POTASSIUM 3.3 mmol/L (3.5-5.1); SODIUM 138 mmol/L (136-145)
--- NOTE | 2016-12-20 19:39 | DIAGNOSTIC IMAGING REPORT ---
CERVICAL SPINE W/O CLINICAL HISTORY: 76 years-old Female presenting with fell off horse, head and right rib pain. TECHNIQUE: Multidetector CT of the cervical spine was performed without the use of intravenous contrast. IV contrast: None. A dose lowering technique was used consistent with the principles of ALARA (as low as reasonably achievable). COMPARISON: None. CT DOSE (mGy.cm): The estimated cumulative dose is 3171.91 inclusive of multiple additional CTs. FINDINGS: Market News Reporter topogram: Unremarkable. Slightly exaggerated cervical lordosis likely secondary to multilevel degenerative changes. No acute fracture or subluxation. 3 mm of anterolisthesis of C5 on C6 likely degenerative. Multilevel degenerative changes further detailed below: C2-3: No osseous neural foraminal or spinal canal narrowing. C3-4: Uncovertebral hypertrophy results in mild bilateral neural foraminal narrowing. No significant spinal canal narrowing. C4-5: Facet arthropathy results in mild bilateral neural foraminal narrowing. No significant osseous spinal canal narrowing. C5-6: Uncovertebral hypertrophy and wrists facet arthropathy results in moderate right and mild left neural foraminal narrowing. C6-7: Facet arthropathy without significant neural foraminal or spinal canal narrowing. C7-T1: No significant spinal canal or neural foraminal narrowing. Paraspinal soft tissues within normal limits. Atherosclerosis. Lung apices clear. IMPRESSION: No acute osseous injury of the cervical spine. Multilevel degenerative changes. Electronically signed by: Valentino Saleh M.D. 12/20/2016 7:37 PM Dictated Date/Time: 12/20/2016 7:32 PM
--- NOTE | 2016-12-20 19:44 | DIAGNOSTIC IMAGING REPORT ---
CHEST CT WITH CONTRAST CT DOSE: 3171.91 mGy.cm HISTORY: Acute chest trauma status post fall fell off horse, head and right rib pain TECHNIQUE: Multiaxial CT images of the chest were performed following the intravenous administration of contrast. 116 mL Optiray 320 IV contrast was administered. A dose lowering technique was utilized adhering to the principles of ALARA. COMPARISON: CT abdomen and pelvis of same day. FINDINGS: Thyroid is homogeneous. There is no pathologic adenopathy of the chest identified. A few calcified right hilar lymph nodes are seen compatible with prior granulomatous disease. Heart is normal in size without pericardial effusion. Moderate atherosclerotic plaquing of the aorta without aneurysm or dissection identified. The opacified pulmonary arterial tree is unremarkable. Mild subsegmental dependent bibasilar atelectasis. No pneumothorax or pleural effusion. There are a few calcified granulomas noted. No evidence of focal pulmonary contusion. 4 mm solid pulmonary nodule of the right upper lobe is seen on image 83 of series 10. Perifissural lymph node noted on image 134 series 10 within the left lower lobe. Minimal areas of mosaic attenuation suggesting air trapping are seen within the upper lobes. The central airways are patent. No acute abnormality of the imaged upper abdomen. Coarse calcifications are seen within the bilateral breasts. There is a round masslike lesion of the mid right breast measuring 1.1 x 1.2 cm which is soft tissue attenuating on image 151 of series 10. Multilevel endplate degenerative changes and facet arthropathy of the spine. No sternal fracture. No compression deformity. No definite rib fracture identified. IMPRESSION: 1. No acute intrathoracic abnormality identified. No fracture or pneumothorax. 2. 4 mm noncalcified pulmonary nodule of the right upper lobe is noted along with evidence of prior granulomatous disease. 3. Parenchymal calcifications are seen within the bilateral breasts. There is a round masslike lesion of the mid right breast measuring up to 1.2 cm as above. Correlate with mammography. Please refer to below summary of Fleischner criteria recommendations for follow-up of incidental CT nodules (Mounika Jain, Guidelines for management of small pulmonary nodules detected on CT scans: A statement from the Fleischner Society, Radiology 237: [phone].) SOLID NODULES Solitary nodule size: <6 mm * Low risk patients: no follow-up needed * high risk patients: optional CT at 12 months Note: newly detected indeterminate nodule in persons 35 years of age or older. * Low risk patients: minimal or absent history of smoking and/or other known risk factors * high risk patients: history of smoking or of other known risk factors (e.g. first degree relative with lung cancer, or exposure to asbestos, radon, uranium) * if a nodule up to 8 mm is partly solid or is ground glass further follow-up is required after 24 months to exclude possible slow growing adenocarcinoma (ADRYAN) The above report was generated using voice recognition software. It may contain grammatical, syntax or spelling errors. Electronically signed by: Channing Bowen M.D. 12/20/2016 7:43 PM Dictated Date/Time: 12/20/2016 7:36 PM
--- NOTE | 2016-12-20 19:45 | DIAGNOSTIC IMAGING REPORT ---
ABD/PELVIS IV CONTRAST ONLY CLINICAL HISTORY: 76 years-old Female presenting with fell off horse, head and right rib pain. TECHNIQUE: Multidetector CT of the abdomen and pelvis was performed after the administration of intravenous contrast. IV contrast: 116 mL of Optiray 320. A dose lowering technique was used consistent with the principles of ALARA (as low as reasonably achievable). COMPARISON: None. CT DOSE (mGy.cm): The estimated cumulative dose is 3171.91 inclusive of multiple additional CTs. FINDINGS: General Service Officer topogram: Unremarkable. Lung bases: Minimal dependent changes likely atelectasis. Normal heart size. No pericardial or pleural effusion. Liver: Normal morphology. Suggestion of hepatic steatosis. No focal lesion or injury. Patent hepatic vasculature. Biliary: No intrahepatic or extrahepatic biliary ductal dilatation. Normal gallbladder. Pancreas: Mild parenchymal atrophy. Spleen: Normal. Adrenal glands: Nodular thickening of the left adrenal gland with a potential underlying indeterminate 1 cm nodule. Right adrenal gland normal. Kidneys and ureters: Normal. No hydronephrosis. Bladder: Normal. Pelvic organs: Uterus and ovaries normal. Bowel: Prominent intramural fat deposition in the right colon, nonspecific but can be seen in the setting of chronic inflammation, extended exposure to steroids, or obesity. No small bowel wall thickening or obstruction. Peritoneal cavity: No free fluid or intraperitoneal gas. Lymph nodes: No enlarged lymph nodes in the abdomen or pelvis. Vasculature: Atherosclerosis of the normal caliber abdominal aorta. IVC patent. Abdominal wall: Extensive subcutaneous infiltration along the right flank with focal hyperdense 11.8 x 3.2 cm hematoma superficial to the right gluteus muscle complex. Musculoskeletal: Degenerative changes of the spine. No acute osseous injury. IMPRESSION: 1. Soft tissue contusion in the superficial subcutaneous tissue of the right flank with focal hematoma immediately superficial to the right gluteus muscle complex. 2. No evidence of intra-abdominal injury. 3. Indeterminate left adrenal nodule. Electronically signed by: Valentino Saleh M.D. 12/20/2016 7:43 PM Dictated Date/Time: 12/20/2016 7:38 PM
[2016-12-20 21:05] VITALS: BP 122/63; PULSE 88; O2SAT 97
--- NOTE | 2016-12-21 04:18 | EMERGENCY ROOM VISIT NOTE ---
ED Visit Note First contact with patient: 18:33 HPI: 76 y/o woman presents with headache and right rib pain after fall from horse. Plan: CT head, cspine, chest, abd/pel unremarkable. PA discussed incidental findings with patient. Labs unremarkable. IS. Pcp f/u. I reviewed the patient's past medical history, medications, and visit nursing notes. I discussed the case with the physician graphic design assistant, examined the patient, and agree with the findings and plan as documented in the physician assistants note.
== END 2016-12-20 21:05 | disposition home or self-care (01) ==
LOC: C.EDB 18:13 → C.EDA 21:05
DX: T14.8XXA Other injury of unspecified body region, initial encounter (principal); V80.010A Animal-rider injured by fall from or being thrown from horse in noncollision accident, initial encounter; Y92.9 Unspecified place or not applicable; E11.9 Type 2 diabetes mellitus without complications; E78.5 Hyperlipidemia, unspecified; I10 Essential (primary) hypertension; Z87.01 Personal history of pneumonia (recurrent); H26.9 Unspecified cataract; Z87.891 Personal history of nicotine dependence; Z79.899 Other long term (current) drug therapy

== ENCOUNTER → 2017-03-21 | Outpatient (CLI) | payer OTHER ==
[~2017-03-21] MED LIST changes: +ATOR10TA82 PO; +ATV/1 PO; +CLX20 PO; -GLC/500 PO; +LISI-729 PO; +METF-384 PO; -ONDA4TAB7 SL
--- NOTE | 2017-03-21 14:28 | DIAGNOSTIC IMAGING REPORT ---
CT OF THE CHEST WITH IV CONTRAST CLINICAL HISTORY: Chronic bronchitis. COMPARISON STUDY: Chest CT December 20, 2016. TECHNIQUE: Following IV administration of 110 mL of Optiray-320, helical axial images of the chest were obtained. Sagittal and coronal reconstructions were viewed as well as maximal intensity projections on an independent 3-D workstation. A dose lowering technique was utilized adhering to the principles of ALARA. CT DOSE: 486.79 mGy.cm FINDINGS: No enlarged axillary, mediastinal or hilar lymph nodes are present. There are several calcified mediastinal and right hilar lymph nodes. The heart is mildly enlarged and there is no pericardial effusion. There is no thoracic aortic dissection. A 1.2 cm hypodense right breast nodule is noted. This is unchanged since CT of December 20, 2016. There is no pneumothorax or pleural effusion. The central airways are patent. There are mild groundglass opacities within the lungs. There is no consolidation. A few tiny pulmonary nodules are similar to exam of December 20, 2016.. The largest is a 5 mm right upper lobe nodule shown image 82 of 291. There are multiple healing right-sided rib fractures, including fractures of the posterior right eighth and ninth ribs and the anterolateral right fifth, sixth, seventh and eighth ribs. A 1.4 cm left adrenal nodule is unchanged since prior CT. This remains indeterminate. Suspected fatty infiltration of the liver is noted. IMPRESSION: 1. Scattered mild groundglass opacities within the lungs. Atelectasis is favored although air trapping or a mild infectious process could appear similar. No consolidation. 2. No change in several tiny pulmonary nodules since chest CT of December 20, 2016. A follow-up chest CT in one year to ensure stability is recommended. 3. Multiple healing right-sided rib fractures. No pneumothorax. 4. No change in an indeterminate 1.4 cm left adrenal nodule. Electronically signed by: Sandoval Olson M.D. 03/21/2017 2:27 PM Dictated Date/Time: 03/21/2017 2:15 PM
== END | disposition home or self-care (01) ==
LOC: C.CTS 12:21
PROVIDERS: ATTEND Internal Medicine Pulmonary Disease
DX: J42 Unspecified chronic bronchitis (principal); R91.8 Other nonspecific abnormal finding of lung field; S22.41XD Multiple fractures of ribs, right side, subsequent encounter for fracture with routine healing; E27.9 Disorder of adrenal gland, unspecified; X58.XXXD Exposure to other specified factors, subsequent encounter

== ENCOUNTER 2017-06-25 04:50 | Inpatient (IN) | payer OTHER ==
[2017-06-19 07:59] VITALS: BMI 33.0
[~2017-06-25] VITALS: Ht 165.1 cm; Wt 90.5 kg
[2017-06-25] VITALS (7 sets, daily range): BP systolic 115–150; BP diastolic 70–79; PULSE 73–96; TEMP 36.8–37.6; O2SAT 93–96; Ht 165.1 cm; Wt 90.5 kg
[~2017-06-25 04:50] MED LIST changes: +ACET-1256 PO; +ASPI81TA28 PO; +CARB1SOL8 OPB; +CHOL1000 PO; +CLN200 PO; -CLX20 PO; +CYAN10004 PO; +DOCU-94 PO; +DTRSR/10 PO; +FLUT0.15; +FLUT1INH INH; +IPRASOL4 INH; +PRLSR20 PO; +SIME1CAP28 PO; +SOLI5TAB2 PO; +ZALE5CAP29 PO; +[UNRECOGNIZED DRUG - CODE] PO
[2017-06-25] MEDS ORDERED: DIPH-437 PO (05:46)
[2017-06-25] MEDS ORDERED: CEFOXITIN IV 2,000 MG in DEXTROSE 5% 50ML 50 ML IV SCH (06:00)
[2017-06-25] MEDS ORDERED: SODIUM CHLORIDE 0.9% 1000ML 1,000 ML IV SCH (06:00)
[2017-06-25] MEDS ORDERED: FENTANYL CITRATE INJ 50 MCG/1 ML 2 ML VIAL ONE ×3 (06:29→09:40)
[2017-06-25] MEDS ORDERED: CISATRACURIUM BESYLATE IV SOLN 2 MG/ML 10 ML VIAL ONE (06:29)
[2017-06-25] MEDS ORDERED: PROPOFOL IV EMULSION 10 MG/ML 20 ML VIAL ONE (06:29)
[2017-06-25] MEDS ORDERED: NEOSTIGMINE METHYLSULFATE 5 MG/5 ML SYR ONE (06:29)
[2017-06-25] MEDS ORDERED: MIDAZOLAM HCL 1 MG/ML 2ML VIAL ONE (06:29)
[2017-06-25] MEDS ORDERED: ONDANSETRON INJ 2 MG/ML 2 ML VIAL ONE ×2 (06:29→10:25)
[2017-06-25] MEDS ORDERED: DEXAMETHASONE SOD INJ 4 MG/ML VIAL ONE (06:29)
[2017-06-25] MEDS ORDERED: GLYCOPYRROLATE INJ 0.2 MG/ML VIAL ONE (06:29)
[2017-06-25] MEDS ORDERED: LIDOCAINE HCL 2% 2 ML VIAL (20MG/ML) ONE (06:29)
[2017-06-25] MEDS ORDERED: SUCCINYLCHOLINE CHLORIDE 20 MG/ML 10 ML VIAL IV ONE (06:31)
--- NOTE | 2017-06-25 06:51 | History & Physical Bridge Note ---
H&P Re-Evaluation Bridge Note: I have examined the patient, reviewed the History & Physical and in the interval since the performance of the History & Physical I have noted the following changes of clinical significance: No changes noted
[2017-06-25] MEDS ORDERED: BUPIVACAINE 0.5 % 5 MG/1 ML PF 10ML VIAL ONE (06:54)
[2017-06-25] MEDS ORDERED: BUPIVACAINE 0.5 % 5 MG/1 ML MPF 30ML VIAL ONE (06:55)
[2017-06-25] MEDS ORDERED: HYDROmorphone INJ 2 MG/ML SYR/VIAL ONE (07:23)
[2017-06-25] MEDS ORDERED: CEFOXITIN SOD 1 GM VIAL ONE ×2 (07:29→10:30)
[2017-06-25] MEDS ORDERED: EpHEDrine SULFATE 50MG/5ML SYR ONE (07:44)
[2017-06-25] MEDS ORDERED: LABETALOL HCL IV 5 MG/ML 20ML ONE (08:10)
[2017-06-25] MEDS ORDERED: ONDANSETRON INJ 2 MG/ML 2 ML VIAL IV PRN (08:45)
[2017-06-25] MEDS ORDERED: LABETALOL HCL IV 5 MG/ML 20ML IV PRN (08:45)
[2017-06-25] MEDS ORDERED: FLUMAZENIL 0.1 MG/1 ML 10 ML VIAL IV PRN (08:45)
[2017-06-25] MEDS ORDERED: HYDROmorphone INJ 0.5 MG/0.5 ML SYR IV PRN (08:45)
[2017-06-25] MEDS ORDERED: NALOXONE HCL 0.4 MG/1 ML VIAL/CARP IV PRN ×2 (08:45→11:00)
[2017-06-25] MEDS ORDERED: ATROPINE SULFATE 0.1 MG/ML 5ML SYR IV PRN (08:45)
[2017-06-25] MEDS ORDERED: EpHEDrine SULFATE INJ 50 MG/ML AMP IV PRN (08:45)
[2017-06-25] MEDS ORDERED: PROMETHAZINE HCL INJ 12.5 MG in SODIUM CHLORIDE 0.9% 50ML 50 ML IV PRN (08:45)
--- NOTE | 2017-06-25 10:42 | [facility] Post Operative Brief Note ---
Immediate Operative Summary Operative Date June 25, 2017. Pre-Operative Diagnosis Malignant neoplasm ascending colon Post-Operative Diagnosis Same Procedure(s) Performed Laparoscopic Assisted Resection of right 2/[address] Perez Sr. Director Product Management Surgeon(s) Batool Shaw PA-C Estimated Blood Loss 20ml Findings Consistent with Post-Op Diagnosis Laparoscopic approach performedd to assue adequate mobilization of the colv Specimens A. Right proximal 2/3 transverse colon Drains None Anesthesia Type General Complication(s) none
--- NOTE | 2017-06-25 11:59 | Anesthesiology Progress Note ---
Anesthesia Post Op Note Date & Time June 25, 2017 at 11:59 Vital Signs Pain Intensity: 0 Vital Signs Past 12 Hours Date Time Temp Pulse Resp B/P (MAP) Pulse Ox O2 Delivery O2 Flow Rate FiO2 06/25/17 11:55 36.3 90 16 128/64 94 Nasal Cannula 4 06/25/17 11:45 92 16 136/64 94 Nasal Cannula 4 06/25/17 11:35 92 16 128/70 95 Nasal Cannula 4 06/25/17 11:25 94 16 151/72 96 Oxymask 5 06/25/17 11:15 88 14 135/58 96 Oxymask 10 06/25/17 11:06 36.2 92 10 143/61 95 Oxymask 10 06/25/17 05:48 36.8 73 20 150/74 93 Room Air Notes Mental Status: alert / awake / arousable, participated in evaluation Pt Amnestic to Procedure: Yes Nausea / Vomiting: adequately controlled Pain: adequately controlled Airway Patency, RR, SpO2: stable & adequate BP & HR: stable & adequate Hydration State: stable & adequate Anesthetic Complications: no major complications apparent
[2017-06-25] MEDS ORDERED: HYDROmorphone HCL 0.5MG/ML 50 ML CASSETTE ONE (12:16)
[2017-06-25] MEDS: HYDROmorphone HCL 0.5MG/ML 50 ML CASSETTE IV PRN ×2 (12:46→23:06)
[2017-06-25 13:27] LABS: HEMATOCRIT 37.1 % (37-47); HEMOGLOBIN 12.3 g/dL (12.0-16.0); MEAN CELL VOLUME 90.9 fL (80-100); MEAN CORPUSCULAR HEMOGLOBIN 30.1 pg (25-34); MEAN CORPUSCULAR HGB CONC 33.2 g/dl (32-36); MEAN PLATELET VOLUME 11.2 fL (7.4-10.4); PLATELET COUNT 183 K/uL (130-400); RED CELL DISTRIBUTION WIDTH SD 46.5 fL (36.4-46.3); WHITE BLOOD COUNT 10.43 K/uL (4.8-10.8)
[2017-06-25 13:46] LABS: CREATININE 0.98 mg/dl (0.60-1.20)
[2017-06-25] MEDS: SODIUM CHLORIDE 0.9% 1000ML 1,000 ML IV SCH (13:53)
[2017-06-25] MEDS: D5W AND 1/2NSS + 20MEQ KCL 1,000 ML IV SCH ×2 (14:00→21:59)
--- NOTE | 2017-06-25 16:40 | OPERATIVE REPORT ---
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 PROCEDURE: Laparoscopic-assisted resection of the right and proximal two-thirds of the transverse colon with primary anastomosis. SURGEON: Rafael Perez MD [employer]ER: Batool Shaw PA-C FINDINGS: The patient had a lesion in the ascending colon that was inked. That was obvious and rather clear. The patient had a second lesion that had been inked and then exploring the abdomen following the colon from proximal to distal, this area was identified in the area of the junction of the middle and distal thirds of the transverse colon. I was able to mobilize the entire transverse colon and the splenic flexure which allowed me to medialize that portion of the colon which allowed me to resect both of those areas within the specimen and perform a primary anastomosis. The liver was of normal size and contour. There were no lesions identified. The stomach was normal. The visible bowel appeared normal. There were no other areas of inking seen in the distal transverse or descending colons. TECHNIQUE: The patient was given a general anesthetic and the area was prepped and draped in the usual sterile fashion. A vertical midline and a small incision was made above the umbilicus, carried down through the subcutaneous tissue to the fascia. A small incision was made in the fascia after being grasped with 2 Anna Marie clamps. The peritoneum was identified, incised, and the introducer was placed bluntly. The abdomen was then insufflated to a pressure of 15 mmHg of carbon dioxide. Two 5 mm introducers were placed on the left side of the abdomen, one above and one below the umbilicus. Dissection was begun in the right side of the colon near the cecum and the peritoneal attachments at the line of Toldt were divided and working from cecum distally up along the right lateral abdominal wall, the colon was reflected medially. A good plane was able to be established between the mesentery and the lateral and posterior wall of the abdomen as well. I then worked up around the hepatic flexure, dividing some of the attachments of the duodenum and the colon. That allowed for good mobilization of the distal ascending colon and the proximal hepatic flexure area. I then began in the mid transverse colon and followed it laterally. Initially I could not see the second area of inking, but in reflecting the omentum superiorly by dividing one attachment of the omentum to the posterior abdominal wall, that allowed me then to flip the omentum up into the upper abdomen. That allowed good visualization of the proximal and mid transverse colon and the inked area was then obvious. I then was able to further reflect the omentum along the area of the splenic flexure and followed that over and around the splenic flexure and down along the descending colon. There were no other areas of ink identified. I then dissected the omentum off the colon wall and divided the gastrocolic ligament working from the mid portion of the transverse colon towards the right. That allowed me then to reflect and draw the proximal transverse colon and further isolate the hepatic flexure and divide other flimsy attachments that tethered it. That allowed for very good mobilization of the hepatic flexure. We then worked from [id number] towards the left, taking the omentum off the colon and establishing a plane superior to the colon along the superior portion of the mesentery and working from superficial down towards the deeper portion of the mesentery. That dissection was carried around the splenic flexure, mobilizing the splenic flexure and bringing the second area that had been inked and the transverse colon over towards the midline and then I eventually across the midline. I felt that there was adequate mobilization. The liver was inspected. It was palpated. There were no lesions identified. The laparoscopic portion of the procedure was then completed. The vertical midline incision above the umbilicus was then carried superiorly along all layers. I was then able to be eviscerate the right colon easily. I then worked distally and was able to eviscerate the proximal two-thirds of the transverse colon including the second area that had been inked A site beyond that measuring about 6 cm was chosen for division of the transverse colon. The mesentery was away from the wall there and it was divided using the CHINYERE stapler. The site for division of the small bowel was chosen and the mesentery was away from the wall and it too was divided using the CHINYERE stapler. The intervening portion of the mesentery was then divided using the LigaSure device until the major vessels were identified and these were clamped twice proximally and once on the specimen side and divided. On the patient's side, they were ligated with a double 2-0 silk and then a 2-0 silk LigaSure. I then completed the mesenteric dissection superiorly and removed the specimen and sent it for pathology. I did open it to confirm that I had the area that had been inked and that was confirmed. The areas were inspected for bleeding and none was seen. The mesentery was then reapproximated in the most posterior half with a running 2-0 Vicryl. The anastomosis was then performed. The small bowel wall was approximated to the colon wall to perform a functional end-to-end anastomosis with interrupted 3-0 silk stay sutures. The antimesenteric border of each of the staple lines was removed and the anastomosis was performed with an 80 CHINYERE. The common opening was closed with a TA stapler being sure to incorporate the serosa on each side. The crotch of the incision was reinforced with a 3-0 silk and additional 3-0 silks were placed on the anterior wall of the anastomosis for reinforcement. The area was inspected for bleeding and none was seen. The remainder of the mesentery was closed with a running 2-0 Vicryl. The anastomosis was placed back into its anatomic position and the omentum was brought down over it. The abdomen was irrigated and irrigation was removed. The fascia was closed with a running #1 PDS. All the skin incisions were then closed with jonathan. The estimated blood loss was 20 mL. Sponge, needle and instrument counts were correct prior to closure. The patient tolerated the surgical procedure without complication and was transferred to recovery. I attest to the content of the Intraoperative Record and any orders documented therein. Any exception s are noted below.
[2017-06-25] MEDS ORDERED: NURSING VERBAL MED ORDER ONE (22:30)
[2017-06-25] MEDS: ACETAMINOPHEN IV 1000MG/100ML IV PRN (23:02)
[2017-06-26] VITALS (8 sets, daily range): BP systolic 123–148; BP diastolic 71–83; PULSE 69–80; TEMP 36.5–37.2; O2SAT 91–97
[2017-06-26] MEDS ORDERED: GLUCAGON FOR INJ 1 MG VIAL IM PRN (07:00)
[2017-06-26] MEDS ORDERED: PHARMACY GLYCEMIC MGMT CONSULT PRN (07:00)
[2017-06-26] MEDS ORDERED: DEXTROSE 50% 50 ML SYR IV PRN (07:00)
[2017-06-26] MEDS ORDERED: GLUCOSE 10 TABS/TUBE PO PRN (07:00)
[2017-06-26] MEDS ORDERED: CARBOHYDRATES FOR HYPOGLYCEMIA PO PRN (07:00)
[2017-06-26] MEDS ORDERED: GLUCOSE 40% GEL 15 GM TUBE PO PRN (07:00)
[2017-06-26 07:09] LABS: HEMATOCRIT 36.4 % (37-47); HEMOGLOBIN 11.8 g/dL (12.0-16.0); IG# 0.02 K/uL (0.00-0.02); LYMPH % 7.4 %; LYMPH ABS # 0.86 K/uL (1.2-3.4); MEAN CELL VOLUME 92.2 fL (80-100); MEAN CORPUSCULAR HEMOGLOBIN 29.9 pg (25-34); MEAN CORPUSCULAR HGB CONC 32.4 g/dl (32-36); MEAN PLATELET VOLUME 11.5 fL (7.4-10.4); MONO % 9.3 %; MONO ABS # 1.09 K/uL (0.11-0.59); NEUT % 83.1 %; NEUT ABS # 9.72 K/uL (1.4-6.5); PLATELET COUNT 186 K/uL (130-400); RED CELL DISTRIBUTION WIDTH CV 13.8 % (11.5-14.5); RED CELL DISTRIBUTION WIDTH SD 46.6 fL (36.4-46.3); WHITE BLOOD COUNT 11.69 K/uL (4.8-10.8)
[2017-06-26] MEDS ORDERED: PHARMACY GLYCEMIC MGMT CONSULT STA (07:09)
--- NOTE | 2017-06-26 07:09 | Surgery Progress Note ---
Surgery Progress Note Date of Service June 26, 2017. Subjective Post OP Day: 1 + pain controlled, No bowel movement, No flatus, No nausea, No vomiting Has a headache, did not sleep well last night Objective Vital Signs: Date Time Temp Pulse Resp B/P (MAP) Pulse Ox O2 Delivery O2 Flow Rate FiO2 06/26/17 03:05 37.0 79 16 123/73 (90) 96 Oxymask 3.0 06/25/17 23:45 Nasal Cannula Humidified Oxygen 06/25/17 22:49 37.6 95 16 137/71 (93) 94 Nasal Cannula 3.0 Humidified Oxygen 06/25/17 19:19 37.6 96 20 149/75 (99) 96 Nasal Cannula 3.0 06/25/17 15:45 Nasal Cannula 3.0 06/25/17 14:40 84 16 134/76 (95) 94 Nasal Cannula 3.0 06/25/17 13:38 37.1 87 15 127/79 (95) 95 Room Air 06/25/17 13:06 91 18 115/72 (86) 93 3.0 06/25/17 12:40 37.4 91 15 128/70 (89) 94 Nasal Cannula 3.0 06/25/17 12:40 94 Nasal Cannula 3.0 06/25/17 12:40 94 Nasal Cannula 3.0 06/25/17 12:25 90 16 108/56 94 Nasal Cannula 3 06/25/17 12:15 90 16 118/60 94 Nasal Cannula 3 06/25/17 12:05 90 16 116/56 94 Nasal Cannula 3 06/25/17 11:55 36.3 90 16 128/64 94 Nasal Cannula 4 06/25/17 11:45 92 16 136/64 94 Nasal Cannula 4 06/25/17 11:35 92 16 128/70 95 Nasal Cannula 4 06/25/17 11:25 94 16 151/72 96 Oxymask 5 06/25/17 11:15 88 14 135/58 96 Oxymask 10 06/25/17 11:06 36.2 92 10 143/61 95 Oxymask 10 Abdomen: non distended, soft, + abnormal bowel sounds (present but decreased) Incision(s): clean, dry, no erythema, no drainage Laboratory Results: Results Past 24 Hours Test 06/25/17 11:21 06/25/17 13:17 06/25/17 20:15 06/26/17 06:23 Range/Units Bedside Glucose 156 179 70-90 mg/dl White Blood Count 10.43 4.8-10.8 K/uL Red Blood Count 4.08 4.2-5.4 M/uL Hemoglobin 12.3 12.0-16.0 g/dL Hematocrit 37.1 37-47 % Mean Corpuscular Volume 90.9 80-100 fL Mean Corpuscular Hemoglobin 30.1 25-34 pg Mean Corpuscular Hemoglobin Concent 33.2 32-36 g/dl RDW Standard Deviation 46.5 36.4-46.3 fL RDW Coefficient of Variation 14.0 11.5-14.5 % Platelet Count 183 130-400 K/uL Mean Platelet Volume 11.2 7.4-10.4 fL Prothrombin Time 10.7 9.0-12.0 SECONDS Prothromb Time International Ratio 1.0 0.9-1.1 Creatinine 0.98 0.60-1.20 mg/dl Est Creatinine Clear Calc Drug Dose 53.4 ml/min Estimated GFR () 64.5 Estimated GFR (Non- 55.6 Assessment & Plan S/P resection of right and proximal 2/3 of transverse colon. Doing well Labs pending No nausea, will start clear liquids Ambulate today D/C Boucher
[2017-06-26] MEDS: HYDROmorphone HCL 0.5MG/ML 50 ML CASSETTE IV PRN ×2 (07:14→15:00)
[2017-06-26 07:42] LABS: CALCIUM 8.5 mg/dl (8.5-10.1); CREATININE 0.75 mg/dl (0.60-1.20); POTASSIUM 4.3 mmol/L (3.5-5.1)
--- NOTE | 2017-06-26 07:44 | Anesthesiology Progress Note ---
Anesthesia Post Op Note Date & Time June 26, 2017 at 07:43 Vital Signs Pain Intensity: 3.0 Vital Signs Past 12 Hours Date Time Temp Pulse Resp B/P (MAP) Pulse Ox O2 Delivery O2 Flow Rate FiO2 06/26/17 07:08 37.2 80 18 140/83 (102) 92 Nasal Cannula 3.0 Humidified Oxygen 06/26/17 03:05 37.0 79 16 123/73 (90) 96 Oxymask 3.0 06/25/17 23:45 Nasal Cannula Humidified Oxygen 06/25/17 22:49 37.6 95 16 137/71 (93) 94 Nasal Cannula 3.0 Humidified Oxygen Notes Mental Status: alert / awake / arousable, participated in evaluation Pt Amnestic to Procedure: Yes Nausea / Vomiting: adequately controlled Pain: adequately controlled Airway Patency, RR, SpO2: stable & adequate BP & HR: stable & adequate Hydration State: stable & adequate Anesthetic Complications: no major complications apparent
[2017-06-26] MEDS: D5W AND 1/2NSS + 20MEQ KCL 1,000 ML IV SCH ×2 (07:54→16:37)
--- NOTE | 2017-06-26 08:54 | Pharmacy Progress Note ---
Glycemic Control Intl Consult Date of Service June 26, 2017. Scope Glycemic Pharmacist consulted by Dr Perez on 06/26/17 for glycemic control and to write orders per [facility] inpatient glycemic control protocol Objective Weight (Kilograms): 90.450 Accuchecks BSG (last 24hrs): Test 06/25/17 11:21 06/25/17 20:15 06/26/17 06:23 06/26/17 08:00 Bedside Glucose 156 mg/dl (70-90) 179 mg/dl (70-90) 180 mg/dl (70-90) Random Glucose 190 mg/dl (70-99) Laboratory Data (last 24hrs) Test 06/25/17 13:17 06/26/17 06:23 Creatinine 0.98 mg/dl 0.75 mg/dl White Blood Count 10.43 K/uL 11.69 K/uL Anion Gap 7.0 mmol/L BUN/Creatinine Ratio 10.3 Blood Urea Nitrogen 8 mg/dl Potassium Level 4.3 mmol/L Sodium Level 139 mmol/L Red Blood Count 3.95 M/uL Hemoglobin 11.8 g/dL Hematocrit 36.4 % Mean Corpuscular Volume 92.2 fL Mean Corpuscular Hemoglobin 29.9 pg Mean Corpuscular Hemoglobin Concent 32.4 g/dl Platelet Count 186 K/uL Mean Platelet Volume 11.5 fL Neutrophils (%) (Auto) 83.1 % Lymphocytes (%) (Auto) 7.4 % Monocytes (%) (Auto) 9.3 % Eosinophils (%) (Auto) 0.0 % Basophils (%) (Auto) 0.0 % Neutrophils # (Auto) 9.72 K/uL Lymphocytes # (Auto) 0.86 K/uL Monocytes # (Auto) 1.09 K/uL Eosinophils # (Auto) 0.00 K/uL Basophils # (Auto) 0.00 K/uL HbA1c Recent Pertinent Medications Outpatient Anti-diabetic Regimen: * Metformin 1,000 mg PO BID Risk Factors for Insulin Resistance: * Steroids: dexamethasone 4mg IV preop * Recent Surgery * Diet Assessment & Plan ASSESSMENT: * 77yo T2DM female with unknown degree of outpatient control; will order per protocol * Pt is maintained on oral antidiabetic agents as an outpatient * Oral agents are not recommended for inpatient use d/t drug interactions, changing PO intake, and difficulty titrating for acute hyper/hypoglycemia. ADA recommends re-initiating outpatient oral agents 1-2 days prior to discharge if/ when appropriate if they were held on admission. * Will hold oral agents for admission and utilize SQ basal bolus insulin regimen which is the recommended regimen for inpatient glycemic control. * Will initiate weight based insulin dosing for insulin shorty patient and titrate based on BSG trends. * Will start with loading doses today since patient received dexamethasone (dxm ) pre-op - hyperglycemic effects can last 24-72hrs after dxm * Maintain all BSGs >200 mg/dl (ideally, >150 mg/dl) to prevent post-op infectious complications PLAN FOR INPATIENT GLYCEMIC CONTROL: * Holding outpatient oral diabetes medications * Basal insulin * Lantus 15 units (~0.2 units/kg) SQ x 1 dose, then 8 units SQ BID while on clear liquid diet * Bolus insulin * NovoLog per scale ACHS or Q6hrs while NPO * Goal Range: Low 110 mg/dL - High 140 mg/dL * Correction Factor: 25 mg/dL/unit * Nutritional / Prandial insulin per carb ratio of 1 unit per 9 grams CHO consumed * Add A1c to AM labs 06/26/17 * Please note that the plan above was derived based on current level of insulin resistance and hospital stress. These recommendations are appropriate for inpatient admission only. Plan of care upon discharge will need to be reassessed to avoid potential outpatient hypo/hyperglycemia. Thank you.
[2017-06-26] MEDS ORDERED: INSULIN GLARGINE SOLOSTAR 100 UNITS/ML 3 ML PEN SC SCH (09:00)
[2017-06-26] MEDS: ACETAMINOPHEN IV 1000MG/100ML IV PRN ×2 (09:12→18:28)
[2017-06-26] MEDS: INSULIN ASPART 100 UNITS/ML 3 ML PEN SC SCH ×4 (09:21→21:01)
[2017-06-26] MEDS: SODIUM CHLORIDE 0.9% 1000ML 1,000 ML IV SCH (09:23)
[2017-06-26 10:27] LABS: HEMOGLOBIN A1C 6.4 % (4.5-5.6)
[2017-06-26] MEDS: ENOXAPARIN 40 MG/0.4 ML SYR SQ SCH (10:59)
[2017-06-26] MEDS: INSULIN GLARGINE SOLOSTAR 100 UNITS/ML 3 ML PEN SC SCH (21:02)
[2017-06-27] VITALS (16 sets, daily range): BP systolic 108–212; BP diastolic 66–114; PULSE 58–103; TEMP 36.5–37.4; O2SAT 88–97
[2017-06-27] MEDS: D5W AND 1/2NSS + 20MEQ KCL 1,000 ML IV SCH ×3 (00:32→19:30)
[2017-06-27] MEDS: ACETAMINOPHEN IV 1000MG/100ML IV PRN (03:33)
[2017-06-27 05:58] LABS: BASO % 0.2 %; BASO ABS # 0.02 K/uL (0-0.2); EOS % 0.4 %; EOS ABS # 0.04 K/uL (0-0.5); HEMATOCRIT 34.3 % (37-47); IG# 0.02 K/uL (0.00-0.02); LYMPH % 17.7 %; LYMPH ABS # 1.82 K/uL (1.2-3.4); MEAN CELL VOLUME 93.7 fL (80-100); MEAN CORPUSCULAR HEMOGLOBIN 30.1 pg (25-34); MEAN CORPUSCULAR HGB CONC 32.1 g/dl (32-36); MEAN PLATELET VOLUME 11.6 fL (7.4-10.4); MONO % 10.8 %; MONO ABS # 1.11 K/uL (0.11-0.59); NEUT % 70.7 %; NEUT ABS # 7.29 K/uL (1.4-6.5); PLATELET COUNT 168 K/uL (130-400); RED CELL DISTRIBUTION WIDTH CV 14.1 % (11.5-14.5); RED CELL DISTRIBUTION WIDTH SD 48.2 fL (36.4-46.3)
[2017-06-27 06:36] LABS: CALCIUM 8.6 mg/dl (8.5-10.1); CREATININE 0.68 mg/dl (0.60-1.20); POTASSIUM 4.2 mmol/L (3.5-5.1)
[2017-06-27] MEDS: HYDROmorphone HCL 0.5MG/ML 50 ML CASSETTE IV PRN (06:59)
--- NOTE | 2017-06-27 07:39 | Surgery Progress Note ---
Surgery Progress Note Date of Service June 27, 2017. Subjective + bowel movement, No flatus, No nausea, No vomiting Not using [employer], reports "seeing things" after pushing [employer] button Only using Tylenol which is not controlling pain No headache today Objective Vital Signs: Date Time Temp Pulse Resp B/P (MAP) Pulse Ox O2 Delivery O2 Flow Rate FiO2 06/27/17 04:31 145/70 (95) 06/27/17 03:46 176/82 (113) 06/27/17 03:20 36.5 84 16 174/77 (109) 91 CPAP 06/26/17 23:00 36.6 73 16 145/75 (98) 91 CPAP 06/26/17 20:00 Nasal Cannula 3.0 06/26/17 16:00 Nasal Cannula 3.0 Humidified Oxygen 06/26/17 15:48 37.0 69 18 144/71 (95) 95 Nasal Cannula 3.0 06/26/17 12:00 36.5 75 18 133/78 (96) 97 3.0 06/26/17 11:42 37.0 74 15 148/73 (98) 96 Nasal Cannula 3.0 06/26/17 10:17 95 Nasal Cannula 3.0 06/26/17 08:00 Nasal Cannula 3.0 06/26/17 07:55 37.0 77 13 144/83 (103) 96 Nasal Cannula Abdomen: non tender, soft, + distended (mild) Incision(s): clean, dry, intact, no erythema, no drainage Laboratory Results: Results Past 24 Hours Test 06/26/17 08:00 06/26/17 11:52 06/26/17 16:53 06/26/17 20:36 Range/Units Bedside Glucose 180 166 139 161 70-90 mg/dl Test 06/27/17 05:31 Range/Units White Blood Count 10.30 4.8-10.8 K/uL Red Blood Count 3.66 4.2-5.4 M/uL Hemoglobin 11.0 12.0-16.0 g/dL Hematocrit 34.3 37-47 % Mean Corpuscular Volume 93.7 80-100 fL Mean Corpuscular Hemoglobin 30.1 25-34 pg Mean Corpuscular Hemoglobin Concent 32.1 32-36 g/dl Platelet Count 168 130-400 K/uL Mean Platelet Volume 11.6 7.4-10.4 fL Neutrophils (%) (Auto) 70.7 % Lymphocytes (%) (Auto) 17.7 % Monocytes (%) (Auto) 10.8 % Eosinophils (%) (Auto) 0.4 % Basophils (%) (Auto) 0.2 % Neutrophils # (Auto) 7.29 1.4-6.5 K/uL Lymphocytes # (Auto) 1.82 1.2-3.4 K/uL Monocytes # (Auto) 1.11 0.11-0.59 K/uL Eosinophils # (Auto) 0.04 0-0.5 K/uL Basophils # (Auto) 0.02 0-0.2 K/uL RDW Standard Deviation 48.2 36.4-46.3 fL RDW Coefficient of Variation 14.1 11.5-14.5 % Immature Granulocyte % (Auto) 0.2 % Immature Granulocyte # (Auto) 0.02 0.00-0.02 K/uL Sodium Level 140 136-145 mmol/L Potassium Level 4.2 3.5-5.1 mmol/L Chloride Level 109 98-107 mmol/L Carbon Dioxide Level 26 21-32 mmol/L Anion Gap 5.0 3-11 mmol/L Blood Urea Nitrogen 6 7-18 mg/dl Creatinine 0.68 0.60-1.20 mg/dl Est Creatinine Clear Calc Drug Dose 77.0 ml/min Estimated GFR () 97.8 Estimated GFR (Non- 84.4 BUN/Creatinine Ratio 9.2 10-20 Random Glucose 146 70-99 mg/dl Calcium Level 8.6 8.5-10.1 mg/dl Assessment & Plan S/P resection of right and proximal 2/3 of transverse colon. Doing well, bowels moved Labs pending No nausea, tolerated clear liquids, advance to full liquids Encouraged ambulation Urine output good D/C [employer], start oral analgesics
[2017-06-27] MEDS ORDERED: OXYCODONE/ACETAMINOPHEN 5-325 TAB PO PRN (07:45)
[2017-06-27] MEDS: INSULIN ASPART 100 UNITS/ML 3 ML PEN SC SCH ×4 (08:58→20:57)
[2017-06-27] MEDS: INSULIN GLARGINE SOLOSTAR 100 UNITS/ML 3 ML PEN SC SCH (09:00)
[2017-06-27] MEDS: ENOXAPARIN 40 MG/0.4 ML SYR SQ SCH (10:33)
--- NOTE | 2017-06-27 12:05 | Pharmacy Progress Note ---
Pharmacy Glycemic Short Note 2 Date of Service June 27, 2017. OUTPATIENT ANTIDIABETIC REGIMEN: * Metformin 1,000mg PO BIDM Item Value Date Time Hemoglobin A1c 6.4 % H 06/26/17 0623 Estimated Average Glucose 137 mg/dl 06/26/17 0623 Item Value Date Time Bedside Glucose 180 mg/dl H 06/26/17 0800 Bedside Glucose 166 mg/dl H 06/26/17 1152 Bedside Glucose 139 mg/dl H 06/26/17 1653 Bedside Glucose 161 mg/dl H 06/26/17 2036 Bedside Glucose 132 mg/dl H 06/27/17 0813 ASSESSMENT: * 77yo T2DM female with excellent outpatient control per recent A1c * Pt is maintained on oral antidiabetic agents as an outpatient * Oral agents are not recommended for inpatient use d/t drug interactions, changing PO intake, and difficulty titrating for acute hyper/hypoglycemia. ADA recommends re-initiating outpatient oral agents 1-2 days prior to discharge if/ when appropriate if they were held on admission. * Holding oral agents for admission and utilizing SQ basal bolus insulin regimen which is the recommended regimen for inpatient glycemic control. * Initiated weight based insulin dosing for insulin shorty patient on 06/26/17 and pharmacy is continuing to titrate based on BSG trends. * Pt has required 34 units of insulin over the past 24hrs * 23 units of basal insulin with Lantus + 11 units of prandial/correctional insulin with NovoLog * AM fasting BSG is in goal range at 132 mg/dl * Post-prandial BSGs are in range (all <180 mg/dl) * Diet is advancing which may increase insulin needs. However, hyperglycemic effects of dexamethasone given pre-op may be wearing off now which would decrease insulin needs. Will adjust orders accordingly. Large drop in AM fasting BSG from 180 yesterday to 132 today --> may need to empirically decrease basal insulin to prevent hypo. * Maintain all BSGs >200 mg/dl (ideally, >150 mg/dl) to prevent post-op infectious complications PLAN FOR INPATIENT GLYCEMIC CONTROL: continue dosing based on estimated total daily dose of ~ 35-40 units/day * Hold outpatient oral diabetes medications * Basal insulin: decrease dosing * Lantus 9 units SQ BID * Bolus insulin: no change * NovoLog per scale ACHS or Q6hrs while NPO * Goal Range: Low 110 mg/dL - High 140 mg/dL * Correction Factor: 25 mg/dL/unit * Nutritional / Prandial insulin per carb ratio of 1 unit per 9 grams CHO consumed PLAN FOR DISCHARGE: * A1c is in goal range for patient based on age/co-morbidities. * Reasonable to continue metformin at discharge. No insulin needed.
[2017-06-27] MEDS ORDERED: CLONIDINE HCL 0.1 MG TAB PO PRN (12:45)
[2017-06-27] MEDS ORDERED: LISINOPRIL 5 MG TAB PO ONE (12:45)
[2017-06-27] MEDS ORDERED: FLVHFA110 INH (13:12)
[2017-06-27] MEDS ORDERED: FRRS300 PO (13:12)
[2017-06-27] MEDS ORDERED: ALBUT/IPRATROP 3MG/0.5MG NEB 3 ML VIAL INH PRN (13:15)
[2017-06-27] MEDS ORDERED: FLUT1INH7 INH (13:34)
--- NOTE | 2017-06-27 13:49 | Medical Consult ---
Consultation Date of Consultation: June 27, 2017. Attending Physician: Rafael Perez M.D. Reason for Consultation: Medical management - HTN History of Present Illness Pt is 77 y/o F with PMH HTN, DM II, HLD, depression, AVINASH, COPD seen in medical consult for hypertension. Patient had laparoscopic resection right proximal and transverse colon on 06/25/[address] Perez. Today patient noted to have BPs: 201/97. Patient is asymptomatic. Denies headache, dizziness, CP, SOB. She does report some abdominal pain and pain increases with any attempted range of motion. Patient was previously prescribed CREW DIRECTOR pump however patient has not been using secondary to causing reported hallucinations. Pain was not controlled with p.o. Tylenol. Today patient was switched to oral Percocet. Patient takes lisinopril 5 mg daily at home, has not received any home BP meds during hospitalization. Patient reports having BM during the night. She has been tolerating clear fluids and has now been progressed to full liquid diet. Patient urinating well. Denies fever/chills, diaphoresis, N/V, [place], dizziness, syncope, vision changes, neck pain, CP, SOB, orthopnea, palpitations, cough, paresthesias, extremity edema, rashes, dysuria, hematuria. Past Medical/Surgical History Medical Problems: (1) CATARACT NOS Status: Chronic (2) Contusion of multiple sites Status: Resolved (3) COPD (chronic obstructive pulmonary disease) Status: Chronic (4) Depression Status: Chronic (5) DIAB MILTON WO COMPL, TYPE II OR UNSPEC TYPE, NOT UNCNTRLD Status: Chronic (6) Fall from horse Status: Resolved (7) HYPERLIPIDEMIA NEC/NOS Status: Chronic (8) HYPERTENSION NOS Status: Chronic (9) AVINASH (obstructive sleep apnea) Permanent Comment: on bipap HS Status: Chronic (10) PNEUMONIA, ORGANISM NOS Status: Resolved Surgical Problems: (1) History of colon resection Permanent Comment: 06/25/17 - right and proximal transverse colon resection - Dr Perez - [facility] Status: Resolved (2) TUBAL LIGATION STATUS Status: Resolved Family History Diabetes mellitus FH: CAD (coronary artery disease) Hypertension Social History Smoking Status: Former Smoker Smokeless Tobacco Use: No Alcohol Use: none Drug Use: none Marital Status: Occupation Status: retired Allergies Coded Allergies: Morphine (Verified Adverse Reaction, Severe, UPSET STOMACH, 06/25/17) Codeine (Verified Adverse Reaction, Unknown, UPSET STOMACH, 06/25/17) Current Inpatient Medications Current Inpatient Medications Medications (Trade) Dose Ordered Sig/Kellie Route Start Time Stop Time Status Last Admin Dose Admin Enoxaparin Sodium (Lovenox Inj) 40 mg Q24H SQ 06/26/17 11:00 07/26/17 10:59 06/27/17 10:33 40 MG Ondansetron HCl (Zofran Inj) 4 mg Q6H PRN IV 06/25/17 10:45 07/25/17 10:44 Potassium Chloride/Dextrose/ Sod Cl 1,000 ml @ 110 mls/hr Q9H6M IV 06/25/17 13:00 07/25/17 12:59 06/27/17 10:30 110 MLS/HR Acetaminophen 100 ml @ 400 mls/hr Q8H PRN IV 06/25/17 23:00 07/25/17 22:59 06/27/17 03:33 400 MLS/HR Miscellaneous Information (Consult Glycemic Management Pharmacy) 1 ea UD PRN N/A 06/26/17 07:00 07/26/17 06:59 Insulin Aspart (novoLOG ASPART) SLIDING SCALE ACHS SC 06/26/17 08:00 07/26/17 07:59 06/27/17 08:58 3 UNITS Glucose (Glucose 40% Gel) 15-30 GRAMS 15 GRAMS... UD PRN PO 06/26/17 07:00 07/26/17 06:59 Glucose (Glucose Chew Tab) 4-8 Tablets 4 Tabl... UD PRN PO 06/26/17 07:00 07/26/17 06:59 Dextrose (Dextrose 50% 50ML Syringe) 25-50ML 25ML FOR ... UD PRN IV 06/26/17 07:00 07/26/17 06:59 Glucagon (Glucagon Inj) 1 mg UD PRN IM 06/26/17 07:00 07/26/17 06:59 Carbohydrates (Carbohydrates For Hypoglycemia) 15-30 GRAMS 15 grams if BSG 54-69... UD PRN PO 06/26/17 07:00 07/26/17 06:59 Oxycodone/ Acetaminophen (Percocet 5-325mg Tab) 1 tab Q4H PRN PO 06/27/17 07:45 07/11/17 07:44 06/27/17 09:06 1 TAB Lisinopril (Zestril Tab) 5 mg QPM PO 06/27/17 21:00 07/27/17 20:59 Insulin Glargine (Lantus Solostar Pen) 9 units BID SC 06/27/17 21:00 07/27/17 20:59 Review of Systems See HPI for pertinent positives & negatives. All other systems reviewed and were otherwise negative Physical Exam Date Time Temp Pulse Resp B/P (MAP) Pulse Ox O2 Delivery O2 Flow Rate FiO2 06/27/17 12:02 37.2 90 18 195/109 (137) 97 Room Air 2.0 Nasal Cannula 06/27/17 11:50 201/97 (131) 06/27/17 09:02 97 Nasal Cannula 3.0 06/27/17 09:00 36.9 79 14 152/79 (103) 97 Nasal Cannula 3.0 06/27/17 07:45 37.0 85 15 172/82 (112) 88 Room Air 06/27/17 07:15 Nasal Cannula 3.0 06/27/17 04:31 145/70 (95) 06/27/17 03:46 176/82 (113) 06/27/17 03:20 36.5 84 16 174/77 (109) 91 CPAP 06/26/17 23:00 36.6 73 16 145/75 (98) 91 CPAP 06/26/17 20:00 Nasal Cannula 3.0 06/26/17 16:00 Nasal Cannula 3.0 Humidified Oxygen 06/26/17 15:48 37.0 69 18 144/71 (95) 95 Nasal Cannula 3.0 General Appearance: WD/WN, + mild distress (lying very still in bed trying not to move as causes increased abdominal pain) Head: normocephalic, atraumatic Eyes: normal inspection, sclerae normal ENT: hearing grossly normal, pharynx normal, + pertinent finding (mucous membranes moist) Neck: supple, no JVD, trachea midline Respiratory/Chest: lungs clear, normal breath sounds, no respiratory distress Cardiovascular: regular rate, rhythm, no murmur, normal peripheral pulses Abdomen/GI: + pertinent finding (+surgical incisions with jonathan in place, no surrounding erythema, no discharge from sites. +BS, moderate diffuse tenderness to light palpation) Extremities/Musculoskelatal: no calf tenderness, normal capillary refill, no pedal edema, non-tender Neurologic/Psych: alert, normal mood/affect, oriented x 3 Skin: warm/dry Laboratory Results Last 24 Hours Test 06/26/17 16:53 06/26/17 20:36 06/27/17 05:31 06/27/17 08:13 Bedside Glucose 139 mg/dl 161 mg/dl 132 mg/dl White Blood Count 10.30 K/uL Red Blood Count 3.66 M/uL Hemoglobin 11.0 g/dL Hematocrit 34.3 % Mean Corpuscular Volume 93.7 fL Mean Corpuscular Hemoglobin 30.1 pg Mean Corpuscular Hemoglobin Concent 32.1 g/dl Platelet Count 168 K/uL Mean Platelet Volume 11.6 fL Neutrophils (%) (Auto) 70.7 % Lymphocytes (%) (Auto) 17.7 % Monocytes (%) (Auto) 10.8 % Eosinophils (%) (Auto) 0.4 % Basophils (%) (Auto) 0.2 % Neutrophils # (Auto) 7.29 K/uL Lymphocytes # (Auto) 1.82 K/uL Monocytes # (Auto) 1.11 K/uL Eosinophils # (Auto) 0.04 K/uL Basophils # (Auto) 0.02 K/uL RDW Standard Deviation 48.2 fL RDW Coefficient of Variation 14.1 % Immature Granulocyte % (Auto) 0.2 % Immature Granulocyte # (Auto) 0.02 K/uL Sodium Level 140 mmol/L Potassium Level 4.2 mmol/L Chloride Level 109 mmol/L Carbon Dioxide Level 26 mmol/L Anion Gap 5.0 mmol/L Blood Urea Nitrogen 6 mg/dl Creatinine 0.68 mg/dl Est Creatinine Clear Calc Drug Dose 77.0 ml/min Estimated GFR () 97.8 Estimated GFR (Non- 84.4 BUN/Creatinine Ratio 9.2 Random Glucose 146 mg/dl Calcium Level 8.6 mg/dl Assessment & Plan Pt post op day# 2 S/P right and proximal transverse colon resection - Dr Perez 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 Tolerated clears and now on to full liquids today. Pt did not like side effects from CREW DIRECTOR dilaudid and stopped using and was not having well controlled pain on tyelnol. Today pt switched to oral Percocet. -pain management per surgery -wound management per surgery -DVT prophylaxis per surgery -incentive spirometry -monitor H&H for acute blood loss anemia HTN Pt with hx HTN, on lisinopril at home. Hasn't had home BP meds. Today developed HTN at 201/97 is asymptomatic currently. Suspect hypertensive secondary to pain and not having home med -resume lisinopril -clonidine po prn SBP>170 -continue to monitor DM II HA1c: 6.4 on 06/26/17 -hold metformin -Glycemic pharmacist is currently managing - continue and continue basal/bolus insulin COPD No current CP/SOB/wheezing -continue home inhalers -neb prn DEPRESSION -resume citalopram AVINASH -continue bipap HS per home settings DVT Prophylaxis -per surgery Disposition admitted medsurg Full code Follows with Dr Hou for routine care Pt will be followed by Dr Hernandez during remaining hospital course ATTENDING ADDENDUM She is a 77-year-old female with the significant past medical history of hypertension, hyperlipidemia, diabetes and COPD apparently underwent transverse colectomy 06/25 and she was noted to have very high blood pressure. She denies to have any associated symptoms with the blood pressure She complains some abdominal discomfort but no other symptoms On examination Hemodynamically stable with systolic blood pressure as high as 201 and now 157 Chest-Clear Heart: Regular Extremities: No edema NETWORK SUPPORT MANAGER: Alert, awake and oriented 3 Her labs, imaging studies, EKG reviewed Her blood pressure medications have been restarted She was also prescribed clonidine orally as needed to control blood pressure Agree with assessment and plan as mentioned above Dr. Juan Luis Hernandez Additional Copies To Mono Hou D.O.
[2017-06-27] MEDS: ONDANSETRON INJ 2 MG/ML 2 ML VIAL IV PRN (14:21)
[2017-06-27] MEDS ORDERED: MAGNESIUM HYDROXIDE SUSP 30 ML UDC PO PRN (18:00)
[2017-06-27] MEDS ORDERED: MAGNESIUM HYDROXIDE SUSP 30 ML UDC PO ONE (18:00)
[2017-06-27] MEDS ORDERED: PROMETHAZINE HCL INJ 12.5 MG in SODIUM CHLORIDE 0.9% 50ML 50 ML IV PRN (18:00)
[2017-06-27] MEDS: CITALOPRAM 40 MG TAB PO SCH (20:54)
[2017-06-27] MEDS ORDERED: LISINOPRIL 5 MG TAB PO SCH (21:00)
[2017-06-27] MEDS ORDERED: INSULIN GLARGINE SOLOSTAR 100 UNITS/ML 3 ML PEN SC SCH (21:00)
[2017-06-27] MEDS ORDERED: FLUTICASONE HFA 110MCG INHALER INH SCH (21:00)
[2017-06-28] MEDS: D5W AND 1/2NSS + 20MEQ KCL 1,000 ML IV SCH ×3 (04:22→23:44)
[2017-06-28 07:43] VITALS: BP 146/85; PULSE 82; TEMP 37.2; O2SAT 94
--- NOTE | 2017-06-28 07:58 | Surgery Progress Note ---
Surgery Progress Note Date of Service June 28, 2017. Subjective Post OP Day: 3 + vomiting (had one episode of vomiting yesterday), No bowel movement, No flatus , No nausea Feels much better today Had similar issues with Percocet yesterday Objective Vital Signs: Date Time Temp Pulse Resp B/P (MAP) Pulse Ox O2 Delivery O2 Flow Rate FiO2 06/28/17 07:43 37.2 82 15 146/85 (105) 94 Nasal Cannula 3.0 06/27/17 23:40 CPAP 06/27/17 22:52 36.5 83 18 108/66 (80) 95 CPAP 06/27/17 18:56 147/87 (107) 06/27/17 17:56 188/99 (128) 06/27/17 15:30 95 Nasal Cannula 2.0 06/27/17 14:58 36.8 100 17 157/86 (109) 95 Nasal Cannula 3.0 06/27/17 14:10 37.4 103 21 212/114 (146) 96 Nasal Cannula 3.0 06/27/17 13:14 189/92 (124) 06/27/17 12:02 37.2 90 18 195/109 (137) 97 Room Air 2.0 Nasal Cannula 06/27/17 11:50 201/97 (131) 06/27/17 09:02 97 Nasal Cannula 3.0 06/27/17 09:00 36.9 79 14 152/79 (103) 97 Nasal Cannula 3.0 Abdomen: + abnormal bowel sounds (present, more active thn yesterday), + distended (mild) Laboratory Results: Results Past 24 Hours Test 06/27/17 08:13 06/27/17 12:13 06/27/17 17:19 06/27/17 20:43 Range/Units Bedside Glucose 132 127 167 160 70-90 mg/dl Assessment & Plan S/P resection of right and proximal 2/3 of transverse colon. Bowels did not move yesterday but "rumbling" this AM, Suspect some aspect of ileus Labs noted No nausea, did not eat yesterday due to nausea, continue full liquids today Encouraged ambulation Urine output good Pain beter today
[2017-06-28] MEDS: INSULIN ASPART 100 UNITS/ML 3 ML PEN SC SCH ×4 (08:58→21:00)
[2017-06-28] MEDS: INSULIN GLARGINE SOLOSTAR 100 UNITS/ML 3 ML PEN SC SCH ×2 (08:59→21:32)
[2017-06-28 09:03] VITALS: O2SAT 94
[2017-06-28 11:31] VITALS: BP 139/83; PULSE 80; O2SAT 96
[2017-06-28] MEDS: ENOXAPARIN 40 MG/0.4 ML SYR SQ SCH (12:40)
--- NOTE | 2017-06-28 12:47 | Progress Note ---
Medicine Progress Note Date & Time of Visit: June 28, 2017 at 12:36. Subjective Pt was seen and examined Lying in bed with no distress Pt said that she feels fine. She said that she is not having any pain She said that she is not hungry and has not been eating much Denies any chest pain, palpitation, dizziness and SOB Objective Last 8 Hrs Date Time Temp Pulse Resp B/P (MAP) Pulse Ox O2 Delivery O2 Flow Rate FiO2 06/28/17 11:31 80 15 139/83 (101) 96 Nasal Cannula 2.0 06/28/17 09:03 94 Nasal Cannula 2.0 06/28/17 07:43 37.2 82 15 146/85 (105) 94 Nasal Cannula 2.0 06/28/17 07:35 Nasal Cannula 2.0 Humidified Oxygen Physical Exam: General- No acute distress Head- atraumatic Eyes- PERRL, EOMI ENT- oropharynx clear Neck- supple, no JVD Lungs- clear to auscultation Heart- regular rhythm Abdomen- +BS, tenderness with palpation Extremities- no calf tenderness Neuro- alert, oriented x 3; PERRL, EOMI Skin- warm & dry Laboratory Results: Last 24 Hours Test 06/27/17 17:19 06/27/17 20:43 06/28/17 08:01 06/28/17 12:09 Bedside Glucose 167 mg/dl 160 mg/dl 160 mg/dl 157 mg/dl Assessment & Plan Malignant neoplasm ascending colon S/P day#3 right and proximal transverse colon resection - Dr Perez pain management per surgery wound management per surgery incentive spirometry diet advanced to full liquid monitor h/h HTN BP stable Continue lisinopril Continue monitor BP DM II HA1c: 6.4 on 06/26/17 -hold metformin -Glycemic pharmacist is currently managing - continue and continue basal/bolus insulin COPD Asymptomatic Continue home inhalers and neb treatment prn DEPRESSION On citalopram AVINASH Continue bipap HS per home settings DVT Prophylaxis As per surgery CODE STATUS FULL CODE Current Inpatient Medications: Current Inpatient Medications Medications (Trade) Dose Ordered Sig/Kellie Route Start Time Stop Time Status Last Admin Dose Admin Enoxaparin Sodium (Lovenox Inj) 40 mg Q24H SQ 06/26/17 11:00 07/26/17 10:59 06/27/17 10:33 40 MG Ondansetron HCl (Zofran Inj) 4 mg Q6H PRN IV 06/25/17 10:45 07/25/17 10:44 06/27/17 14:21 4 MG Potassium Chloride/Dextrose/ Sod Cl 1,000 ml @ 110 mls/hr Q9H6M IV 06/25/17 13:00 07/25/17 12:59 06/28/17 04:22 110 MLS/HR Acetaminophen 100 ml @ 400 mls/hr Q8H PRN IV 06/25/17 23:00 07/25/17 22:59 06/27/17 03:33 400 MLS/HR Miscellaneous Information (Consult Glycemic Management Pharmacy) 1 ea UD PRN N/A 06/26/17 07:00 07/26/17 06:59 Insulin Aspart (novoLOG ASPART) SLIDING SCALE ACHS SC 06/26/17 08:00 07/26/17 07:59 06/28/17 08:58 3 UNITS Glucose (Glucose 40% Gel) 15-30 GRAMS 15 GRAMS... UD PRN PO 06/26/17 07:00 07/26/17 06:59 Glucose (Glucose Chew Tab) 4-8 Tablets 4 Tabl... UD PRN PO 06/26/17 07:00 07/26/17 06:59 Dextrose (Dextrose 50% 50ML Syringe) 25-50ML 25ML FOR ... UD PRN IV 06/26/17 07:00 07/26/17 06:59 Glucagon (Glucagon Inj) 1 mg UD PRN IM 06/26/17 07:00 07/26/17 06:59 Carbohydrates (Carbohydrates For Hypoglycemia) 15-30 GRAMS 15 grams if BSG 54-69... UD PRN PO 06/26/17 07:00 07/26/17 06:59 Oxycodone/ Acetaminophen (Percocet 5-325mg Tab) 1 tab Q4H PRN PO 06/27/17 07:45 07/11/17 07:44 06/27/17 09:06 1 TAB Clonidine HCl (Catapres Tab) 0.1 mg Q6 PRN PO 06/27/17 12:45 07/27/17 12:44 06/27/17 14:22 0.1 MG Lisinopril (Zestril Tab) 5 mg QPM PO 06/28/17 21:00 07/27/17 20:59 Citalopram Hydrobromide (celeXA TAB) 40 mg QPM PO 06/27/17 21:00 07/27/17 20:59 06/27/17 20:54 40 MG Albuterol/ Ipratropium (Duoneb) 3 ml Q4R PRN INH 06/27/17 13:15 07/27/17 13:14 Miscellaneous Information (Order Awaiting Action) 1 ea QS N/A 06/27/17 16:00 07/27/17 15:59 Promethazine HCl 12.5 mg/Sodium Chloride 50.5 ml @ 204 mls/hr Q6H PRN IV 06/27/17 18:00 07/27/17 17:59 06/27/17 18:07 204 MLS/HR Magnesium Hydroxide (Milk Of Magnesia Susp) 30 ml Q6H PRN PO 06/27/17 18:00 07/27/17 17:59 Insulin Glargine (Lantus Solostar Pen) 10 units BID SC 06/28/17 09:00 07/28/17 08:59 06/28/17 08:59 10 UNITS
[2017-06-28 15:00] VITALS: BP 161/79; PULSE 83; TEMP 36.4; O2SAT 94
[2017-06-28 15:45] VITALS: O2SAT 94
[2017-06-28] MEDS: LISINOPRIL 5 MG TAB PO SCH (21:27)
[2017-06-28] MEDS: CITALOPRAM 40 MG TAB PO SCH (21:27)
[2017-06-29 00:04] VITALS: BP 135/90; PULSE 76; TEMP 37; O2SAT 91
--- NOTE | 2017-06-29 06:31 | DIAGNOSTIC IMAGING REPORT ---
ULTRASOUND VENOUS DOPPLER LWR EXT BILA CLINICAL HISTORY: Leg pain and swelling COMPARISON STUDY: No previous studies for comparison. FINDINGS: Real-time and color flow Doppler imaging were performed. Flow was seen within the femoral, popliteal and calf veins with no intraluminal thrombus demonstrated. The saphenous vein is patent. IMPRESSION: No evidence of lower extremity DVT. Electronically signed by: Jasvir Rodriguez M.D. 06/29/2017 6:29 AM Dictated Date/Time: 06/29/2017 6:29 AM
[2017-06-29] MEDS: D5W AND 1/2NSS + 20MEQ KCL 1,000 ML IV SCH ×3 (07:05→17:48)
[2017-06-29 07:46] LABS: CALCIUM 8.8 mg/dl (8.5-10.1); CREATININE 0.7 mg/dl (0.60-1.20); POTASSIUM 4.2 mmol/L (3.5-5.1)
--- NOTE | 2017-06-29 07:48 | Surgery Progress Note ---
Surgery Progress Note Date of Service June 29, 2017. Subjective Post OP Day: 4 + bowel movement, + flatus, + pain controlled, + diet (appetite is poor, food doesn't taste good, but not related to nausea or vomiting), No nausea, No vomiting Had leg cramps last night, ultrasound negative for DVT Objective Vital Signs: Date Time Temp Pulse Resp B/P (MAP) Pulse Ox O2 Delivery O2 Flow Rate FiO2 06/29/17 00:04 37.0 76 16 135/90 (105) 91 CPAP 06/28/17 23:45 Room Air CPAP 06/28/17 20:00 Room Air CPAP 06/28/17 15:45 94 Room Air 06/28/17 15:00 36.4 83 16 161/79 (106) 94 Room Air 06/28/17 11:31 80 15 139/83 (101) 96 Nasal Cannula 2.0 06/28/17 09:03 94 Nasal Cannula 2.0 Abdomen: normal bowel sounds, non distended, + distended (less today), + tenderness (less today) Incision(s): clean, dry, intact, no erythema Laboratory Results: Results Past 24 Hours Test 06/28/17 08:01 06/28/17 12:09 06/28/17 17:09 06/28/17 20:54 Range/Units Bedside Glucose 160 157 132 132 70-90 mg/dl Test 06/29/17 06:55 Range/Units Assessment & Plan S/P resection of right and proximal 2/3 of transverse colon. Pathology noted, discussed with patient Bowels moving, appetite not returned, can put on soft diet today Encouraged ambulation Urine output good Pain controlled
[2017-06-29 07:56] VITALS: BP 151/77; PULSE 78; TEMP 37; O2SAT 93
[2017-06-29] MEDS: INSULIN ASPART 100 UNITS/ML 3 ML PEN SC SCH ×4 (08:30→21:00)
[2017-06-29] MEDS: INSULIN GLARGINE SOLOSTAR 100 UNITS/ML 3 ML PEN SC SCH ×2 (08:31→21:43)
--- NOTE | 2017-06-29 09:19 | Pharmacy Progress Note ---
Pharmacy Glycemic Short Note 2 Date of Service June 29, 2017. OUTPATIENT ANTIDIABETIC REGIMEN: * Metformin 1,000mg PO BIDM Item Value Date Time Bedside Glucose 160 mg/dl H 06/28/17 0801 Bedside Glucose 157 mg/dl H 06/28/17 1209 Bedside Glucose 132 mg/dl H 06/28/17 1709 Bedside Glucose 132 mg/dl H 06/28/17 2054 Bedside Glucose 140 mg/dl H 06/29/17 0754 Item Value Date Time Hemoglobin A1c 6.4 % H 06/26/17 0623 Estimated Average Glucose 137 mg/dl 06/26/17 0623 ASSESSMENT: * 77yo T2DM female with excellent outpatient control per recent A1c * Pt has required 23 units of insulin over the past 24hrs * 20 units of basal insulin with Lantus * 3 units of prandial/correctional insulin with NovoLog * minimal carbohydrate intake * Diet was advanced to soft foods/low fiber today, which may increase insulin needs. No changes to insulin regimen today since all BSGs were well controlled over the past 48 hours. * Maintain all BSGs <200 mg/dl (ideally, <150 mg/dl) to prevent post-op infectious complications PLAN FOR INPATIENT GLYCEMIC CONTROL: * Hold outpatient oral diabetes medications * Basal insulin: * Lantus 10 units SQ BID * Bolus insulin: * NovoLog per scale ACHS or Q6hrs while NPO * Goal Range: Low 110 mg/dL - High 140 mg/dL * Correction Factor: 25 mg/dL/unit * Nutritional / Prandial insulin per carb ratio of 1 unit per 9 grams CHO consumed PLAN FOR DISCHARGE: * A1c is in goal range for patient based on age/co-morbidities. * Reasonable to continue metformin at discharge. No insulin needed.
--- NOTE | 2017-06-29 10:50 | Discharge Instructions ---
Discharge Instructions Date of Service June 29, 2017. Admission Reason for Admission: Malignant Neoplasm Of Ascending Colon Discharge Discharge Diagnosis / Problem: same Discharge Goals Goal(s): Decrease discomfort, Improve function Activity Recommendations Activity Limitations: per Instructions/Follow-up section No heavy lifting over 10 pounds for 6 weeks No strenuous activity until cleared by surgeon No submerging incisions underwater for 2 weeks (no bathing, swimming, or hot tubs) No driving while taking narcotic pain medication or until you are pain free . Instructions / Follow-Up Instructions / Follow-Up You may shower. Gently clean incisions with soap and water. Surgical jonathan will be removed in office Walking and light activity is encouraged to prevent blood clots from forming You will be given narcotic pain medication as needed for moderate to severe pain. This medication may make you drowsy and can cause constipation. To Combat constipation: - may take OTC stool softener such as Colace daily - drink plenty of water - avoid foods that constipate - May take gentle laxative or prune juice if needed You may take extra strength Tylenol or Ibuprofen as needed for mild pain. If you are still taking Percocet , avoid Tylenol in between doses as Percocet already has Tylenol in it. Follow-up in surgical office in 1-2 weeks as scheduled, please call office at [phone] if you do not already have an appointment. Current Hospital Diet Patient's current hospital diet: Diabetes Type 2 Diet, Low Fiber Diet Discharge Diet Recommended Diet: Low Fiber Diet Procedures Procedures Performed: Laparoscopic Assisted Resection of right 2/3 Transverse Colon Pending Studies Studies pending at discharge: no Laboratory Results Hemoglobin A1c Test 06/26/17 06:23 Range/Units Estimated Average Glucose 137 mg/dl Hemoglobin A1c 6.4 H 4.5-5.6 % Medical Emergencies . Who to Call and When: Medical Emergencies: If at any time you feel your situation is an emergency, please call 911 immediately. . Non-Emergent Contact Non-Emergency issues call your: Primary Care Provider, Surgeon Call Non-Emergent contact if: you have a fever, temperature is above 101, your pain is not controlled, your pain is worsening, your pain is unusual for you, wound has increased drainage, wound has increased redness, wound has increased pain . "Provider Documentation" section prepared by Batool Shaw. . [place] Drug Monitoring Program Search Results: patient reviewed within database, no issues identified
[2017-06-29] MEDS: ENOXAPARIN 40 MG/0.4 ML SYR SQ SCH (10:52)
[2017-06-29] MEDS ORDERED: OXYC-57 PO (10:53)
[2017-06-29 15:17] VITALS: BP 158/81; PULSE 84; TEMP 37.1; O2SAT 92
--- NOTE | 2017-06-29 18:21 | Progress Note ---
Medicine Progress Note Date & Time of Visit: June 29, 2017 at 18:14. Subjective Pt was seen and examined Sitting at the edge of the bed with no distress Pt said that she feels fine She said that she feels much better Denies any pain Tolerated diet well Denies any chest pain, palpitation, dizziness and SOB Objective Last 8 Hrs Date Time Temp Pulse Resp B/P (MAP) Pulse Ox O2 Delivery O2 Flow Rate FiO2 06/29/17 15:17 37.1 84 18 158/81 (106) 92 Room Air Physical Exam: General- No acute distress Head- atraumatic Eyes- PERRL, EOMI ENT- oropharynx clear Neck- supple, no JVD Lungs- clear to auscultation Heart- regular rhythm Abdomen- +BS, mild tenderness with palpation Extremities- no calf tenderness Neuro- alert, oriented x 3; PERRL, EOMI Skin- warm & dry Laboratory Results: Last 24 Hours Test 06/28/17 20:54 06/29/17 06:55 06/29/17 07:54 06/29/17 12:06 Bedside Glucose 132 mg/dl 140 mg/dl 144 mg/dl Sodium Level 140 mmol/L Potassium Level 4.2 mmol/L Chloride Level 106 mmol/L Carbon Dioxide Level 33 mmol/L Anion Gap 1.0 mmol/L Blood Urea Nitrogen 5 mg/dl Creatinine 0.70 mg/dl Est Creatinine Clear Calc Drug Dose 74.8 ml/min Estimated GFR () 96.9 Estimated GFR (Non- 83.6 BUN/Creatinine Ratio 6.7 Random Glucose 139 mg/dl Calcium Level 8.8 mg/dl Magnesium Level 1.9 mg/dl Test 06/29/17 17:07 Bedside Glucose 127 mg/dl Assessment & Plan Malignant neoplasm ascending colon S/P day#3 right and proximal transverse colon resection - Dr Perez pain management per surgery wound management per surgery incentive spirometry tolerated diet Clinically stable HTN BP stable Continue lisinopril Continue monitor BP DM II HA1c: 6.4 on 06/26/17 -hold metformin -Glycemic pharmacist is currently managing - continue and continue basal/bolus insulin COPD Asymptomatic Continue home inhalers and neb treatment prn DEPRESSION On citalopram AVINASH Continue bipap HS per home settings DVT Prophylaxis As per surgery CODE STATUS FULL CODE Current Inpatient Medications: Current Inpatient Medications Medications (Trade) Dose Ordered Sig/Kellie Route Start Time Stop Time Status Last Admin Dose Admin Enoxaparin Sodium (Lovenox Inj) 40 mg Q24H SQ 06/26/17 11:00 07/26/17 10:59 06/29/17 10:52 40 MG Ondansetron HCl (Zofran Inj) 4 mg Q6H PRN IV 06/25/17 10:45 07/25/17 10:44 06/27/17 14:21 4 MG Potassium Chloride/Dextrose/ Sod Cl 1,000 ml @ 75 mls/hr [id number] IV 06/25/17 13:00 07/25/17 12:59 06/29/17 17:48 75 MLS/HR Acetaminophen 100 ml @ 400 mls/hr Q8H PRN IV 06/25/17 23:00 07/25/17 22:59 06/27/17 03:33 400 MLS/HR Miscellaneous Information (Consult Glycemic Management Pharmacy) 1 ea UD PRN N/A 06/26/17 07:00 07/26/17 06:59 Insulin Aspart (novoLOG ASPART) SLIDING SCALE ACHS SC 06/26/17 08:00 07/26/17 07:59 06/29/17 17:51 1 UNITS Glucose (Glucose 40% Gel) 15-30 GRAMS 15 GRAMS... UD PRN PO 06/26/17 07:00 07/26/17 06:59 Glucose (Glucose Chew Tab) 4-8 Tablets 4 Tabl... UD PRN PO 06/26/17 07:00 07/26/17 06:59 Dextrose (Dextrose 50% 50ML Syringe) 25-50ML 25ML FOR ... UD PRN IV 06/26/17 07:00 07/26/17 06:59 Glucagon (Glucagon Inj) 1 mg UD PRN IM 06/26/17 07:00 07/26/17 06:59 Carbohydrates (Carbohydrates For Hypoglycemia) 15-30 GRAMS 15 grams if BSG 54-69... UD PRN PO 06/26/17 07:00 07/26/17 06:59 Oxycodone/ Acetaminophen (Percocet 5-325mg Tab) 1 tab Q4H PRN PO 06/27/17 07:45 07/11/17 07:44 06/27/17 09:06 1 TAB Clonidine HCl (Catapres Tab) 0.1 mg Q6 PRN PO 06/27/17 12:45 07/27/17 12:44 06/27/17 14:22 0.1 MG Lisinopril (Zestril Tab) 5 mg QPM PO 06/28/17 21:00 07/27/17 20:59 06/28/17 21:27 5 MG Citalopram Hydrobromide (celeXA TAB) 40 mg QPM PO 06/27/17 21:00 07/27/17 20:59 06/28/17 21:27 40 MG Albuterol/ Ipratropium (Duoneb) 3 ml Q4R PRN INH 06/27/17 13:15 07/27/17 13:14 Miscellaneous Information (Order Awaiting Action) 1 ea QS N/A 06/27/17 16:00 07/27/17 15:59 Promethazine HCl 12.5 mg/Sodium Chloride 50.5 ml @ 204 mls/hr Q6H PRN IV 06/27/17 18:00 07/27/17 17:59 06/27/17 18:07 204 MLS/HR Magnesium Hydroxide (Milk Of Magnesia Susp) 30 ml Q6H PRN PO 06/27/17 18:00 07/27/17 17:59 Insulin Glargine (Lantus Solostar Pen) 10 units BID SC 06/28/17 09:00 07/28/17 08:59 06/29/17 08:31 10 UNITS
[2017-06-29] MEDS: ONDANSETRON INJ 2 MG/ML 2 ML VIAL IV PRN (21:14)
[2017-06-29] MEDS: LISINOPRIL 5 MG TAB PO SCH (21:16)
[2017-06-29] MEDS: CITALOPRAM 40 MG TAB PO SCH (21:16)
[2017-06-29 23:15] VITALS: BP 177/76; PULSE 83; TEMP 37.4; O2SAT 91
--- NOTE | 2017-06-30 06:41 | Surgery Progress Note ---
Surgery Progress Note Date of Service June 30, 2017. Subjective progressing well- passing flatus tolerating diet Objective Vital Signs: Date Time Temp Pulse Resp B/P (MAP) Pulse Ox O2 Delivery O2 Flow Rate FiO2 06/30/17 00:00 Room Air CPAP 06/29/17 23:15 37.4 83 18 177/76 (109) 91 Room Air 06/29/17 15:50 Room Air 06/29/17 15:17 37.1 84 18 158/81 (106) 92 Room Air 06/29/17 08:16 Room Air 06/29/17 07:56 37.0 78 18 151/77 (101) 93 Room Air General Appearance: no apparent distress Respiratory/Chest: no respiratory distress Abdomen: soft Incision(s): intact Laboratory Results: Results Past 24 Hours Test 06/29/17 06:55 06/29/17 07:54 06/29/17 12:06 06/29/17 17:07 Range/Units Sodium Level 140 136-145 mmol/L Potassium Level 4.2 3.5-5.1 mmol/L Chloride Level 106 98-107 mmol/L Carbon Dioxide Level 33 21-32 mmol/L Anion Gap 1.0 3-11 mmol/L Blood Urea Nitrogen 5 7-18 mg/dl Creatinine 0.70 0.60-1.20 mg/dl Est Creatinine Clear Calc Drug Dose 74.8 ml/min Estimated GFR () 96.9 Estimated GFR (Non- 83.6 BUN/Creatinine Ratio 6.7 10-20 Random Glucose 139 70-99 mg/dl Calcium Level 8.8 8.5-10.1 mg/dl Magnesium Level 1.9 1.8-2.4 mg/dl Bedside Glucose 140 144 127 70-90 mg/dl Test 06/29/17 20:38 Range/Units Bedside Glucose 128 70-90 mg/dl Assessment & Plan 06/30/17- doing well- for discharge today
[2017-06-30 07:18] VITALS: BP 177/76; PULSE 83; TEMP 37.4; O2SAT 91
[2017-06-30 07:43] VITALS: BP 150/77; PULSE 72; TEMP 37; O2SAT 92
[2017-06-30] MEDS: INSULIN ASPART 100 UNITS/ML 3 ML PEN SC SCH (08:00)
[2017-06-30] MEDS: INSULIN GLARGINE SOLOSTAR 100 UNITS/ML 3 ML PEN SC SCH (08:11)
[2017-06-30] MEDS ORDERED: METFORMIN HCL 500 MG TAB PO SCH (09:00)
[2017-06-30] MEDS: ENOXAPARIN 40 MG/0.4 ML SYR SQ SCH (11:00)
== END 2017-06-30 12:08 | disposition home or self-care (01) | DRG 331 ==
LOC: C.ACU 04:50 → C.MSN 06:51 → ENRESERV 11:34
PROVIDERS: ADMIT Surgery; ATTEND Surgery
PROC: 0DTK4ZZ Resection of Ascending Colon, Percutaneous Endoscopic Approach (ICD-10-PCS; principal; 2017-06-25 07:00)
PROC: 0DBL4ZZ Excision of Transverse Colon, Percutaneous Endoscopic Approach (ICD-10-PCS; principal; 2017-06-25 07:00)
DX: C18.2 Malignant neoplasm of ascending colon (principal); D12.0 Benign neoplasm of cecum; D12.3 Benign neoplasm of transverse colon; E11.9 Type 2 diabetes mellitus without complications; I10 Essential (primary) hypertension; E78.5 Hyperlipidemia, unspecified; G47.33 Obstructive sleep apnea (adult) (pediatric); J44.9 Chronic obstructive pulmonary disease, unspecified; F32.9 Major depressive disorder, single episode, unspecified; M79.7 Fibromyalgia; E66.9 Obesity, unspecified; Z68.33 Body mass index [BMI] 33.0-33.9, adult; Z87.891 Personal history of nicotine dependence; Z79.82 Long term (current) use of aspirin; Z79.84 Long term (current) use of oral hypoglycemic drugs; Z79.899 Other long term (current) drug therapy; Z88.5 Allergy status to narcotic agent; Z82.49 Family history of ischemic heart disease and other diseases of the circulatory system; Z83.3 Family history of diabetes mellitus; R25.2 Cramp and spasm; R11.2 Nausea with vomiting, unspecified